=== PATIENT | male | born 1935 | race Caucasian/White ===

== ENCOUNTER 2017-04-15 06:17 | Emergency (ER) | payer MEDICARE, BC ==
--- NOTE | 2017-04-15 06:46 | EDM.PDOC ---
<Mike Bergman - Last Filed: 04/15/17 06:44> ED HPI GENERAL MEDICAL PROBLEM - General Chief Complaint: Chest Pain Stated Complaint: CHEST PAIN Time Seen by Provider: 04/15/17 06:43 Source of Information: Reports: Patient History Limitations: Reports: No Limitations - History of Present Illness INITIAL COMMENTS - FREE TEXT/NARRATIVE: This patient says that he's had chest pain for about the last 2 hours or so. He describes it as substernal or left pectoral area. He's had this before. There is no history of heart disease however. He gets a lot of intestinal gas and had some last night so took some gas pills before going to bed. He said that really didn't help much so he took some more during the night. He thinks the chest pain he's having this morning that was different from the gas he thinks this might actually be his heart. At the time of my exam his pain has completely resolved however. He denied any nausea sweats or shortness of breath. Chest Pain Score (Numeric/FACES): 7 - Related Data Allergies Allergy/AdvReac Type Severity Reaction Status Date / Time allopurinol Allergy Cannot Verified 03/15/14 18:17 Remember Penicillins Allergy Rash Verified 01/10/14 14:54 Sulfa (Sulfonamide Allergy Hives Verified 01/10/14 14:53 Antibiotics) Home Meds: Home Meds Ascorbic Acid [Vitamin C] 500 mg PO DAILY 01/10/14 [History] Cholecalciferol (Vitamin D3) [Vitamin D] 1,000 unit PO DAILY 01/10/14 [History] Pravastatin [Pravachol] 2 tab PO BEDTIME 01/10/14 [History] [place]-3 Fatty Acids 02/14/14 [History] Insulin Glarg,Human.Rec.Analog [Lantus Solostar] 10 units SUBCNJ BID 04/15/17 [ History] Terazosin HCl [Terazosin] 2 mg PO ASDIRECTED 04/15/17 [History] Past Medical History Cardiovascular History: Reports: High Cholesterol Other Musculoskeletal History: carpal tunnel Endocrine/Metabolic History: Reports: Diabetes, Type II - Infectious Disease History Infectious Disease History: Reports: Chicken Pox, Measles, Mumps, Shingles - Past Surgical History GI Surgical History: Reports: Hernia Repair/Other Other Musculoskeletal Surgeries/Procedures:: right thumb amputation. Social & Family History - Tobacco Use Smoking Status *Q: Never Smoker - Caffeine Use Caffeine Use: Reports: Coffee - Alcohol Use Days Per Week of Alcohol Use: 0 - Recreational Drug Use Recreational Drug Use: No ED ROS GENERAL - Review of Systems Review Of Systems: See Below Constitutional: Reports: No Symptoms HEENT: Reports: No Symptoms Respiratory: Reports: No Symptoms Cardiovascular: Reports: Chest Pain Endocrine: Reports: No Symptoms GI/Abdominal: Reports: No Symptoms : Reports: No Symptoms ED EXAM, GENERAL - Physical Exam Exam: See Below Exam Limited By: No Limitations General Appearance: Alert, WD/WN, No Apparent Distress Eye Exam: Bilateral Eye: Normal Inspection Throat/Mouth: Normal Inspection Respiratory/Chest: Lungs Clear, Normal Breath Sounds Cardiovascular: Normal Peripheral Pulses, Regular Rate, Rhythm, No Murmur Peripheral Pulses: 2+: Radial (L), Radial (R), Posterior Tibial (L), Posterior Tibial (R) GI/Abdominal: Normal Bowel Sounds, Soft, Non-Tender Extremities: Normal Inspection, No Pedal Edema Neurological: Alert, Oriented Psychiatric: Normal Affect Skin Exam: Warm, Dry Course - Vital Signs Last Recorded V/S: Last Vital Signs Temp 35.6 C 04/15/17 06:25 Pulse 55 L 04/15/17 06:25 Resp 16 04/15/17 06:25 BP 162/96 H 04/15/17 06:25 Pulse Ox 97 04/15/17 06:25 - Orders/Labs/Meds Orders: Active Orders 24 hr Category Date Time Status EKG Documentation Completion [RC] ASDIRECTED Care 04/15/17 06:47 Active URIC ACID [CHEM] Stat Lab 04/15/17 07:45 Ordered EKG 12 Lead [EK] Urgent Ther 04/15/17 06:47 Ordered Labs: Laboratory Tests 04/15/17 04/15/17 Range/Units 06:57 06:57 WBC 7.4 (4.5-11.0) K/uL RBC 4.44 (4.30-5.90) M/uL Hgb 13.2 (12.0-15.0) g/dL Hct 39.4 L (40.0-54.0) % MCV 89 (80-98) fL MCH 30 (27-31) pg MCHC 34 (32-36) % Plt Count 158 (150-400) K/uL Neut % (Auto) 77 H (36-66) % Lymph % (Auto) 12 L (24-44) % [place] % (Auto) 10 H (2-6) % Eos % (Auto) 2 (2-4) % Baso % (Auto) 0 (0-1) % Sodium 138 L (140-148) mmol/L Potassium 4.3 (3.6-5.2) mmol/L Chloride 103 (100-108) mmol/L Carbon Dioxide 24 (21-32) mmol/L Anion Gap 15.3 H (5.0-14.0) mmol/L BUN 31 H (7-18) mg/dL Creatinine 1.6 H (0.8-1.3) mg/dL Est Cr Clr Drug Dosing 30.83 mL/min Estimated GFR (MDRD) 42 L (>60) Glucose 123 H (74-106) mg/dL Calcium 8.8 (8.5-10.1) mg/dL Total Bilirubin 0.4 (0.2-1.0) mg/dL AST 23 (15-37) U/L ALT 26 (12-78) U/L Alkaline Phosphatase 74 (46-116) U/L Troponin I < 0.017 (0.000-0.056) ng/mL Total Protein 6.8 (6.4-8.2) g/dL Albumin 3.6 (3.4-5.0) g/dL Globulin 3.2 (2.3-3.5) g/dL Albumin/Globulin Ratio 1.1 L (1.2-2.2) Meds: Medications Discontinued Medications Generic Name Dose Route Start Last Admin Trade Name Henryq PRN Reason Stop Dose Admin Hydrocodone Bitart/Acetaminophen 1 tab 04/15/17 07:17 04/15/17 07:33 Brave 325-5 Mg PO 04/15/17 07:18 1 tab ONETIME ONE Administration Naproxen 500 mg 04/15/17 07:15 04/15/17 07:34 Naprosyn PO 04/15/17 07:16 500 mg Q12H ONE Administration Naproxen Confirm 04/15/17 07:36 Naprosyn Administered 04/15/17 07:37 Dose 250 mg .ROUTE .STK-MED ONE Departure - Departure Disposition: Home, Self-Care 01 Clinical Impression: Abdominal gas pain, Arthritis of foot, left, Atypical chest pain Forms: ED Department Discharge Care Plan Goals: rtc if chest pain occurs with exercise, soak left foot twice daily in warm water, cont medication Dr Sethi perscribed to prevent the uric acid to rise , avoid the use of advil and alieve, ibuprofen because of the kidney funtion. predisone 10 mg daily for 6 days to settle the pain in the toe down. Pt did not wish to have a cardiac stress test. - My Orders Last 24 Hours: My Active Orders 04/15/17 07:45 URIC ACID [CHEM] Stat - Assessment/Plan Last 24 Hours: My Active Orders 04/15/17 07:45 URIC ACID [CHEM] Stat <Tania Webster - Last Filed: 04/15/17 08:14> Course - Re-Assessments/Exams Free Text/Narrative Re-Assessment/Exam: 04/15/17 07:53 pt hd normal cardiac enzymes and his ekg looked good. He Has not been having episodes of chest pain. He is very active doing alot of physical work. he does not get chest pain with that. He has not been sob. he has been pain free since he arrived at the hosp. He did do alot of belching and then the pain went away. He is having alot of pain in the left great toe. A uric acid was ordered. he was recently placed on uloric whic prevents attacks. We did talk about getting a non exercise cardiac stress test. He did not want to do that unless he has further pain. He feels as active as he is that he is not having any heart problems. he was advised if he starts having pain with exercise he needs to have that. 04/15/17 07:56 04/15/17 07:59 04/15/17 08:01 Pt had a uric acid at the clinic which was not marked ly elevated. Departure - Departure Time of Disposition: 08:02 Condition: Fair
[2017-04-15] MEDS ORDERED: Naproxen 250 MG Tab PO ONE (07:15)
[2017-04-15] MEDS ORDERED: Acetaminophen/HYDROcodone 325-5 MG Tab PO ONE (07:17)
[2017-04-15] MEDS ORDERED: Naproxen 250 MG Tab ONE (07:36)
[2017-04-15 08:48] VITALS: BP 173/95
== END 2017-04-15 08:45 | disposition home or self-care (01) ==
LOC: JP.ED 06:17
DX: R07.89 Other chest pain (principal); M19.072 Primary osteoarthritis, left ankle and foot; R14.1 Gas pain; E78.00 Pure hypercholesterolemia, unspecified; E11.9 Type 2 diabetes mellitus without complications; Z89.011 Acquired absence of right thumb; Z88.0 Allergy status to penicillin; Z88.2 Allergy status to sulfonamides; Z79.899 Other long term (current) drug therapy; Z79.4 Long term (current) use of insulin
CPT/HCPCS: 36415; 80053; 84484; 84550; 85025; 93005; 99285; A9270; 93010; 99284

== ENCOUNTER 2018-02-04 06:50 | Emergency (ER) | payer MEDICARE, BC ==
[2018-02-04 07:14] VITALS: BP 176/93
[2018-02-04] MEDS ORDERED: HYDROmorphone 0.5 MG/0.5 ML Syringe IVPUSH ONE (07:50)
[2018-02-04] MEDS ORDERED: Lactated Ringers 1,000 ML IV SCH (08:00)
--- NOTE | 2018-02-04 08:00 | EDM.PDOC ---
ED HPI GENERAL MEDICAL PROBLEM - General Chief Complaint: Abdominal Pain Stated Complaint: STOMACHACHE Time Seen by Provider: 02/04/18 07:40 Source of Information: Reports: Patient, Old Records, RN History Limitations: Reports: No Limitations - History of Present Illness INITIAL COMMENTS - FREE TEXT/NARRATIVE: 82 yo male here with diffuse abdominal pain for the past 2 days. He has no fever or nausea. No change in stooling. Eating makes the pain which is now 8/10 slightly worse. Pushing on the abdomen does not change his sx's. He has not eaten yet today. He is urinating a little more often since the pain began. Stooling or voiding does not give him any relief. He is a non-smoker. He has not had any respiratory sx's. He has never had anything like this before. He has never had any abdominal surgeries. He is not aware of having any diverticular dz or inflammatory bowel dz. Sx's began gradually on Monday morning , he cannot tell me over what duration of time the pain increased, but it has been steady for most of the past couple of days. He has not tried any self tx. Also mentions that his sciatica has recently flared that he has been dealing with for the past 6 mos or so. Follows with his primary Dr. Sethi for this. Onset: Gradual Onset Date: 02/02/18 Duration: Day(s): (2), Constant Location: Reports: Abdomen Quality: Reports: Ache Severity: Moderate Improves with: Reports: None Worsens with: Reports: Eating (makes it slightly worse.) Context: Reports: Other (unknown) Associated Symptoms: Reports: No Other Symptoms. Denies: Chest Pain, Cough, Diaphoresis, Fever/Chills, Nausea/Vomiting, Shortness of Breath - Related Data Allergies Allergy/AdvReac Type Severity Reaction Status Date / Time allopurinol Allergy Cannot Verified 02/04/18 07:05 Remember Penicillins Allergy Rash Verified 02/04/18 07:05 Sulfa (Sulfonamide Allergy Hives Verified 02/04/18 07:05 Antibiotics) Home Meds: Home Meds Ascorbic Acid [Vitamin C] 500 mg PO DAILY 01/10/14 [History] Cholecalciferol (Vitamin D3) [Vitamin D] 1,000 unit PO DAILY 01/10/14 [History] Pravastatin [Pravachol] 2 tab PO BEDTIME 01/10/14 [History] [place]-3 Fatty Acids 02/14/14 [History] Terazosin HCl [Terazosin] 2 mg PO ASDIRECTED 04/15/17 [History] Insulin Glargine,Hum.Rec.Anlog [Basaglar Rodríguezpen U-100] 02/04/18 [History] Past Medical History Cardiovascular History: Reports: High Cholesterol Other Musculoskeletal History: carpal tunnel Endocrine/Metabolic History: Reports: Diabetes, Type II - Infectious Disease History Infectious Disease History: Reports: Chicken Pox, Measles, Mumps, Shingles - Past Surgical History GI Surgical History: Reports: Hernia Repair/Other Other Musculoskeletal Surgeries/Procedures:: right thumb amputation. Social & Family History - Tobacco Use Smoking Status *Q: Never Smoker - Caffeine Use Caffeine Use: Reports: Coffee - Alcohol Use Days Per Week of Alcohol Use: 0 - Recreational Drug Use Recreational Drug Use: No ED ROS GENERAL - Review of Systems Review Of Systems: See Below Constitutional: Reports: Malaise, Decreased Appetite HEENT: Reports: No Symptoms Respiratory: Reports: No Symptoms Cardiovascular: Reports: No Symptoms Endocrine: Reports: No Symptoms GI/Abdominal: Reports: Abdominal Pain, Anorexia, Decreased Appetite. Denies: Black Stool, Bloody Stool, Constipation, Diarrhea, Difficulty Swallowing, Distension, Hematemesis, Hematochezia, Melena, Nausea, Stool Incontinence, Vomiting : Reports: Frequency. Denies: Discharge, Dysuria, Flank Pain, Hematuria, Incontinence, Pain, Urgency, Urinary Retention Musculoskeletal: Reports: No Symptoms Skin: Reports: No Symptoms Neurological: Reports: No Symptoms Psychiatric: Reports: No Symptoms ED EXAM, GI/ABD - Physical Exam Exam: See Below Exam Limited By: No Limitations General Appearance: Alert, WD/WN, No Apparent Distress Eyes: Bilateral: Normal Appearance Ears: Normal External Exam, Normal Canal, Hearing Grossly Normal, Normal TMs Nose: Normal Inspection, Normal Mucosa, No Blood Throat/Mouth: Normal Inspection, Normal Lips, Normal Oropharynx, Normal Voice, No Airway Compromise Head: Atraumatic, Normocephalic Neck: Normal Inspection, Supple, Non-Tender Respiratory/Chest: No Respiratory Distress, Lungs Clear, Normal Breath Sounds, No Accessory Muscle Use Cardiovascular: Regular Rate, Rhythm, No Edema GI/Abdominal Exam: Soft, Non-Tender (pressing on the abdomen does not change his perception of pain.), No Distention, No Mass, Abnormal Bowel Sounds ( slightly decreased). No: Distended, Guarding, Rigid, Rebound, Tender, Hernia, Mass, Hepatomegaly, Splenomegaly (Male) Exam: No Hernia. No: Hernia, Inguinal Lymphadenopathy, Suprapubic Fullness Back Exam: Normal Inspection. No: CVA Tenderness (R), CVA Tenderness (L) Extremities: Normal Inspection Neurological: Alert, Oriented, CN II-XII Intact, Normal Cognition, No Motor/ Sensory Deficits Psychiatric: Normal Affect, Normal Mood Skin Exam: Warm, Dry, Intact, Normal Color, No Rash Lymphatic: No Adenopathy Course - Vital Signs Text/Narrative:: post-void bladder scan ~[address] abd/pelvis with contrast-moderate stool, diverticulosis, enlarged prostate Pain a lot better after 0.5 mg Dilauidid IV Last Recorded V/S: Last Vital Signs Temp 35.9 C 02/04/18 07:13 Pulse 61 02/04/18 07:13 Resp 14 02/04/18 07:13 BP 176/93 H 02/04/18 07:13 Pulse Ox 98 02/04/18 07:13 - Orders/Labs/Meds Orders: Active Orders 24 hr Category Date Time Status Abdomen Pelvis w Cont [CT] Stat Exams 02/04/18 07:54 Taken UA W/MICROSCOPIC [URIN] Stat Lab 02/04/18 09:52 Ordered Lactated Ringers [Ringers, Lactated] 1,000 ml Med 02/04/18 08:00 Active IV ASDIRECTED Sodium Chloride 0.9% [Saline Flush] Med 02/04/18 08:23 Active 10 ml FLUSH ONETIME PRN Medication Orders Lactated Ringer's (Ringers, Lactated) 1,000 mls @ 500 mls/hr IV ASDIRECTED WILMER Last Admin: 02/04/18 08:10 Dose: 500 mls/hr Sodium Chloride (Saline Flush) 10 ml FLUSH ONETIME PRN PRN Reason: PER RADIOLOGY PROTOCOL Last Admin: 02/04/18 09:27 Dose: 10 ml Labs: Laboratory Tests 02/04/18 02/04/18 02/04/18 Range/Units 08:01 08:01 08:01 WBC 11.7 H (4.5-11.0) K/uL RBC 5.12 (4.30-5.90) M/uL Hgb 15.0 (12.0-15.0) g/dL Hct 44.1 (40.0-54.0) % MCV 86 (80-98) fL MCH 29 (27-31) pg MCHC 34 (32-36) % Plt Count 170 (150-400) K/uL Sodium 136 L (140-148) mmol/L Potassium 4.3 (3.6-5.2) mmol/L Chloride 103 (100-108) mmol/L Carbon Dioxide 21 (21-32) mmol/L Anion Gap 16.3 H (5.0-14.0) mmol/L BUN 23 H (7-18) mg/dL Creatinine 1.6 H (0.8-1.3) mg/dL Est Cr Clr Drug Dosing 30.32 mL/min Estimated GFR (MDRD) 42 L (>60) Glucose 136 H (74-106) mg/dL Lactic Acid (0.4-2.0) mmol/L Calcium 9.2 (8.5-10.1) mg/dL Total Bilirubin 0.5 (0.2-1.0) mg/dL AST 17 (15-37) U/L ALT 25 (12-78) U/L Alkaline Phosphatase 68 (46-116) U/L Troponin I 0.021 (0.000-0.056) ng/mL C-Reactive Protein 0.30 (0.0-0.3) mg/dL Total Protein 6.8 (6.4-8.2) g/dL Albumin 3.8 (3.4-5.0) g/dL Globulin 3.0 (2.3-3.5) g/dL Albumin/Globulin Ratio 1.3 (1.2-2.2) Lipase 219 (73-393) U/L Urine Color Urine Appearance Urine pH (4.5-8.0) Ur Specific [place] (1.008-1.030) Urine Protein (NEGATIVE) mg/dL Urine Glucose (UA) (NEGATIVE) mg/dL Urine Ketones (NEGATIVE) mg/dL Urine Occult Blood (NEGATIVE) Urine Nitrite (NEGAITVE) Urine Bilirubin (NEGATIVE) Urine Urobilinogen (NORMAL) mg/dL Ur Leukocyte Esterase (NEGATIVE) Urine RBC (0-5) Urine WBC (0-5) Ur Epithelial Cells Amorphous Sediment Urine Bacteria Urine Mucus 02/04/18 02/04/18 Range/Units 08:01 09:52 WBC (4.5-11.0) K/uL RBC (4.30-5.90) M/uL Hgb (12.0-15.0) g/dL Hct (40.0-54.0) % MCV (80-98) fL MCH (27-31) pg MCHC (32-36) % Plt Count (150-400) K/uL Sodium (140-148) mmol/L Potassium (3.6-5.2) mmol/L Chloride (100-108) mmol/L Carbon Dioxide (21-32) mmol/L Anion Gap (5.0-14.0) mmol/L BUN (7-18) mg/dL Creatinine (0.8-1.3) mg/dL Est Cr Clr Drug Dosing mL/min Estimated GFR (MDRD) (>60) Glucose (74-106) mg/dL Lactic Acid 1.1 (0.4-2.0) mmol/L Calcium (8.5-10.1) mg/dL Total Bilirubin (0.2-1.0) mg/dL AST (15-37) U/L ALT (12-78) U/L Alkaline Phosphatase (46-116) U/L Troponin I (0.000-0.056) ng/mL C-Reactive Protein (0.0-0.3) mg/dL Total Protein (6.4-8.2) g/dL Albumin (3.4-5.0) g/dL Globulin (2.3-3.5) g/dL Albumin/Globulin Ratio (1.2-2.2) Lipase (73-393) U/L Urine Color Yellow Urine Appearance Slightly cloudy Urine pH 6.0 (4.5-8.0) Ur Specific [place] 1.010 (1.008-1.030) Urine Protein Trace (NEGATIVE) mg/dL Urine Glucose (UA) Normal (NEGATIVE) mg/dL Urine Ketones Negative (NEGATIVE) mg/dL Urine Occult Blood Moderate (NEGATIVE) Urine Nitrite Negative (NEGAITVE) Urine Bilirubin Negative (NEGATIVE) Urine Urobilinogen Normal (NORMAL) mg/dL Ur Leukocyte Esterase Negative (NEGATIVE) Urine RBC 5-10 H (0-5) Urine WBC Not seen (0-5) Ur Epithelial Cells Not seen Amorphous Sediment Few Urine Bacteria Not seen Urine Mucus Few Meds: Medications Generic Name Dose Route Start Last Admin Trade Name Freq PRN Reason Stop Dose Admin Lactated Ringer's 1,000 mls @ 500 mls/hr 02/04/18 08:00 02/04/18 08:10 Ringers, Lactated IV 500 mls/hr ASDIRECTED WILMER Administration Sodium Chloride 10 ml 02/04/18 08:23 02/04/18 09:27 Saline Flush FLUSH 10 ml ONETIME PRN Administration PER RADIOLOGY PROTOCOL Discontinued Medications Generic Name Dose Route Start Last Admin Trade Name Freq PRN Reason Stop Dose Admin Hydromorphone HCl 0.5 mg 02/04/18 07:50 02/04/18 08:07 Dilaudid IVPUSH 02/04/18 07:51 0.5 mg ONETIME ONE Administration Sodium Chloride 72 mls @ 3 mls/sec 02/04/18 08:23 02/04/18 09:27 Normal Saline IV 02/04/18 08:24 3 mls/sec ONETIME ONE Administration Iopamidol 100 ml 02/04/18 08:23 02/04/18 09:27 Isovue-300 (61%) IV 100 ml . DIRECTED PRN Administration RADIOLOGY EXAM Departure - Departure Time of Disposition: 10:50 Disposition: Home, Self-Care 01 Condition: Fair Clinical Impression: Abdominal pain Qualifiers: Abdominal location: generalized Qualified Code(s): R10.84 - Generalized abdominal pain - Discharge Information Referrals: Viraj Sethi MD [Primary Care Provider] - Forms: ED Department Discharge Additional Instructions: Increase your terazocin to 4 mg at bedtime for urinary retention. - My Orders Last 24 Hours: My Active Orders 02/04/18 07:54 Abdomen Pelvis w Cont [CT] Stat 02/04/18 08:00 Lactated Ringers [Ringers, Lactated] 1,000 ml IV ASDIRECTED 02/04/18 08:23 Sodium Chloride 0.9% [Saline Flush] 10 ml FLUSH ONETIME PRN 02/04/18 09:52 UA W/MICROSCOPIC [URIN] Stat - Assessment/Plan Last 24 Hours: My Active Orders 02/04/18 07:54 Abdomen Pelvis w Cont [CT] Stat 02/04/18 08:00 Lactated Ringers [Ringers, Lactated] 1,000 ml IV ASDIRECTED 02/04/18 08:23 Sodium Chloride 0.9% [Saline Flush] 10 ml FLUSH ONETIME PRN 02/04/18 09:52 UA W/MICROSCOPIC [URIN] Stat
[2018-02-04] MEDS ORDERED: Sodium Chloride 0.9% 10 ML Syringe FLUSH PRN (08:23)
[2018-02-04] MEDS ORDERED: Iopamidol 612 MG/ML 100 ML Bottle IV PRN (08:23)
== END 2018-02-04 11:13 | disposition home or self-care (01) ==
LOC: JP.ED 06:50
DX: R10.84 Generalized abdominal pain (principal); E11.9 Type 2 diabetes mellitus without complications; E78.00 Pure hypercholesterolemia, unspecified; Z79.899 Other long term (current) drug therapy; Z88.0 Allergy status to penicillin; Z88.2 Allergy status to sulfonamides; Z79.4 Long term (current) use of insulin
CPT/HCPCS: 36415; 51798; 74177; 80053; 81001; 83605; 83690; 84484; 85027; 86140; 96361; 96374; 99284; J1170; J7030; J7050; J7120; Q9967

== ENCOUNTER 2018-03-05 05:45 | Day surgery (SDC) | payer MEDICARE, BC ==
[2018-03-05] MEDS ORDERED: Dextrose 5%-Lactated Ringers 1,000 ML IV SCH (06:30)
[2018-03-05] MEDS ORDERED: fentaNYL 100 MCG/2 ML SDV ONE (07:09)
[2018-03-05] MEDS ORDERED: Propofol 200 MG/20 ML SDV ONE ×2 (07:09→07:45)
[2018-03-05] MEDS ORDERED: Glycopyrrolate 0.2 MG/ML 2 ML SDV IVPUSH ONE (07:15)
[2018-03-05] MEDS ORDERED: Pantoprazole 40 MG Vial IVPUSH ONE (08:10)
[2018-03-05 09:26] VITALS: BP 151/87
--- NOTE | 2018-03-07 10:47 | OR ---
DATE OF PROCEDURE: 03/05/2018 PREOPERATIVE DIAGNOSIS: Recent episode of abdominal pain with CT scan showing thickening of the gastric fundus. POSTOPERATIVE DIAGNOSIS: Upper GI endoscopy showin. Submucosal mass involving gastric fundus. 2. Antral gastritis with focal pre-pyloric ulcer. OPERATIVE PROCEDURE: Esophagogastroduodenoscopy with: 1. Biopsies of antrum for CLOtest. 2. Biopsies of pre-pyloric ulcer for histologic evaluation. 3. Snare excision of mucosa overlying the submucosal gastric fundal mass (30222). 4. Biopsies of submucosal mass involving gastric fundus (45257). ANESTHESIA: IV sedation. INDICATION FOR PROCEDURE: An 82-year-old presenting with some identified thickening of the gastric fundus on CT scan. This was prompted after some episodes of abdominal pain and the patient was seen in the emergency room. Plan is to proceed with upper GI endoscopy with biopsies as indicated. Potential risks including bleeding and perforation were discussed, and the patient wishes to proceed. DETAILS OF PROCEDURE: The patient was taken to the operating room and placed in the left lateral decubitus position. IV sedation was administered, after which the upper GI endoscope was passed orally through the length of the esophagus and stomach with retroflexion view of the fundus, and thereafter through the pyloric channel and into the proximal duodenum. Findings included normal hypopharynx, larynx, and upper esophageal sphincter. The esophageal body and EG junction were likewise unremarkable. As one passed in the stomach, retroflexion revealed a fairly large mass. This was roughly 3 to 4 cm inferior to the esophagogastric junction. This could be submucosal mass. Apart from that within the gastric antrum, there was diffuse gastritis and a focal prepyloric ulcer. This was fairly small in terms of diameter, but appeared to be fairly deep. The rest of the pyloric channel and duodenum to the junction of third and fourth portions were unremarkable. At this point, biopsies were obtained from the antrum and sent for CLOtest for H. pylori. Multiple biopsies were obtained from the gastric ulcer and sent for histologic evaluation. Attention was then taken to the submucosal mass in the gastric antrum. Initially the snare was placed around its base and as this was tightened and cautery applied, it basically unroofed the surface of the mass removing the mucosa overlying it. This was sent for histologic evaluation. This then allowed what appeared to be a nice platform for biopsy of the white hard submucosal mass. Multiple biopsies of this were obtained. Minimal bleeding from the biopsy site was seen and the procedure then concluded. The patient was taken to the recovery room in satisfactory condition. This submucosal mass most likely will need to be resected, but the extent of resection would depend on histologic findings based on today's biopsies. We will see the patient back this coming to discuss treatment option. The patient will also be started on Protonix 40 mg IV in the recovery room and then 40 mg daily for treatment of the gastritis, prepyloric ulcer. Eliecer Ludwig MD /[id number]
== END 2018-03-05 09:55 | disposition home or self-care (01) ==
LOC: JP.SDS 05:45
PROVIDERS: ATTEND Surgery
DX: K29.50 Unspecified chronic gastritis without bleeding (principal); B96.81 Helicobacter pylori [H. pylori] as the cause of diseases classified elsewhere; K31.89 Other diseases of stomach and duodenum; K25.9 Gastric ulcer, unspecified as acute or chronic, without hemorrhage or perforation; Z88.0 Allergy status to penicillin; Z88.2 Allergy status to sulfonamides; Z88.8 Allergy status to other drugs, medicaments and biological substances
CPT/HCPCS: 43239; 43251; 87081; 88305; 88341; 88342; 88360; C9113; J2704; J3010; J7042; J3490

== ENCOUNTER 2018-03-13 06:04 | Inpatient (IN) | payer MEDICARE, BC ==
[~2018-03-13 06:04] MED LIST: Acetaminophen 500 MG Tab PO ONE; Celecoxib 200 MG Cap PO ONE; Gabapentin 300 MG Cap PO ONE; Scopolamine 1.5 MG Transdermal Patch TOP SCH
[2018-03-13] MEDS ORDERED: Dextrose 5%-Lactated Ringers 1,000 ML IV SCH (06:30)
[2018-03-13] MEDS ORDERED: Propofol 200 MG/20 ML SDV ONE (07:03)
[2018-03-13] MEDS ORDERED: Glycopyrrolate 0.2 MG/ML 5 ML MDV ONE (07:03)
[2018-03-13] MEDS ORDERED: Ondansetron 4 MG/2 ML SDV ONE (07:03)
[2018-03-13] MEDS ORDERED: Dexamethasone 4 MG/ML SDV ONE (07:03)
[2018-03-13] MEDS ORDERED: Rocuronium 50 MG/5 ML Vial ONE (07:03)
[2018-03-13] MEDS ORDERED: Succinylcholine 200 MG/10 ML MDV ONE (07:03)
[2018-03-13] MEDS ORDERED: Neostigmine Methylsulfate 1 MG/ML 5 ML Syringe ONE (07:03)
[2018-03-13] MEDS ORDERED: fentaNYL 250 MCG/5 ML SDV ONE (07:03)
[2018-03-13] MEDS ORDERED: cefOXitin 2 GM in Sodium Chloride 0.9% 50 ML IV ONE (07:30)
[2018-03-13] MEDS ORDERED: HYDROmorphone/Normal Saline 15 MG/30 ML PCA IV PRN (07:32)
[2018-03-13] MEDS ORDERED: Naloxone 0.4 MG/ML SDV IV PRN (07:39)
[2018-03-13] MEDS ORDERED: Ketamine 500 MG/5 ML MDV IV SCH (07:45)
[2018-03-13] MEDS ORDERED: Ropivacaine 36 ML, Dexamethasone 8 MG, EPINEPHrine 0.4 MG, Sodium Chloride 0.9% 41.6 ML NERVRT SCH ×4 (07:45)
[2018-03-13] MEDS ORDERED: Meropenem 500 MG SDV ONE (08:34)
[2018-03-13] MEDS ORDERED: ePHEDrine 50 MG/ML SDV ONE (09:05)
[2018-03-13] MEDS ORDERED: Insulin Aspart 100 Units/ML 3 ML Pen SUBCUT SCH (11:00)
[2018-03-13] MEDS: Dextrose 5%-Lactated Ringers 1,000 ML IV SCH ×2 (11:45→22:53)
[2018-03-13] MEDS ORDERED: Glucagon,Human Recombinant 1 MG Vial IM PRN (12:00)
[2018-03-13] MEDS ORDERED: Metoclopramide 10 MG/2 ML SDV IVPUSH PRN (12:00)
[2018-03-13] MEDS ORDERED: diphenhydrAMINE 50 MG/ML SDV IVPUSH PRN (12:00)
[2018-03-13] MEDS ORDERED: Labetalol 20 MG/4 ML Syringe IVPUSH PRN (12:00)
[2018-03-13] MEDS ORDERED: hydrOXYzine HCl 100 MG/2 ML SDV IM PRN (12:00)
[2018-03-13] MEDS ORDERED: 50% Dextrose in Water 50 ML Syringe IVPUSH PRN (12:00)
[2018-03-13] MEDS ORDERED: Ondansetron 4 MG/2 ML SDV IVPUSH PRN (12:00)
[2018-03-13] MEDS: Gabapentin 250 MG/5 ML Solution ML 470 ML Bottle PO SCH ×2 (15:12→20:15)
[2018-03-13] MEDS: Pantoprazole 40 MG Vial IVPUSH SCH (15:13)
[2018-03-13] MEDS: Acetaminophen Soln 650 MG/20.3 ML UD Cup PO SCH ×2 (15:14→20:15)
[2018-03-13] MEDS: cefOXitin 2 GM in Sodium Chloride 0.9% 50 ML IV SCH ×2 (15:14→20:15)
[2018-03-13] MEDS: MVI, Adult with Vitamin K 10 ML, Thiamine 100 MG, Chromium/Copper/Mang/Selen/Zn 1 ML in... IV SCH ×4 (16:45)
[2018-03-13] MEDS: Insulin Aspart 100 Units/ML 3 ML Pen SUBCUT PRN (17:03)
[2018-03-13] MEDS: Heparin Sodium 5,000 Units/ML Vial SUBCUT SCH (20:14)
[2018-03-14] MEDS: Insulin Aspart 100 Units/ML 3 ML Pen SUBCUT PRN (00:22)
[2018-03-14] MEDS: cefOXitin 2 GM in Sodium Chloride 0.9% 50 ML IV SCH ×2 (01:15→09:20)
[2018-03-14] MEDS: Acetaminophen Soln 650 MG/20.3 ML UD Cup PO SCH ×4 (02:22→20:21)
[2018-03-14] MEDS ORDERED: Iohexol 647 MG/ML 50 ML SDV PO STA (03:29)
[2018-03-14] MEDS: Dextrose 5%-Lactated Ringers 1,000 ML IV SCH ×2 (04:38→23:25)
--- NOTE | 2018-03-14 09:03 | PN ---
DATE OF SERVICE: 03/14/2018 SUBJECTIVE: Mateo is postop day 1. His vital signs have been stable. Upper GI x-ray looked good today. Pain is controlled. He has been up in the chair. Blood sugar last checked was 123. REVIEW OF SYSTEMS: Remainder of review of systems is negative for any pertinent positives and negatives. OBJECTIVE: GENERAL: Mateo Laureano is a pleasant 82-year-old male. He is alert, orientated, lying in the bed with the head of the bed elevated. VITAL SIGNS: TPR, no temperature has been checked, pulse 54, respirations 18, and blood pressure is 115/65. HEENT: Negative. NECK: Supple. HEART: Regular rate and rhythm. LUNGS: Clear. ABDOMEN: Dressings are dry and intact. ERINN drain put out 145 mL of a light pink serosanguineous drainage and abdominal binder has been on it. EXTREMITIES: SCDs are on. There is no peripheral edema. Ace catheter output was 1715. ASSESSMENT: 1. EGD. 2. Exploratory laparotomy. Derik-en-Y esophagogastrectomy and small bowel resection for ulcerated submucosal mass adjacent to the esophageal junction, persistent gastritis, and duodenitis refractory to medical management. 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 Date of surgery 03/13/2018. PLAN: 1. Schedule and have consent signed for delayed primary closure. IV sedation in the a.m. 2. Decrease IV to 100 mL per hour. 3. Discontinue Ace. 4. Step-2 gastric bypass diet without cereal. 5. Continue RAG SHREDDER until after delayed primary closure. 6. Home medications: Terazosin HCl 2 mg p.o. at bedtime restarted. Good pulmonary toilet. We will evaluate p.r.n. or in the a.m. Damaris Larry PA-C /[id number]
[2018-03-14] MEDS: Gabapentin 250 MG/5 ML Solution ML 470 ML Bottle PO SCH ×3 (09:20→20:24)
[2018-03-14] MEDS: SCOPOLAMINE PATCH CHECK TOP SCH (09:21)
[2018-03-14] MEDS: Heparin Sodium 5,000 Units/ML Vial SUBCUT SCH ×2 (09:21→20:20)
[2018-03-14] MEDS: Celecoxib 200 MG Cap PO SCH (09:21)
--- NOTE | 2018-03-14 09:32 | CR ---
UGI wo KUB HISTORY: eval R -Y GBP FINDINGS: After administration of oral contrast, upright views were obtained. Post operative changes gastric bypass. Surgical drains in place. No evidence for leak. Contrast passes freely into proximal small bowel loops. IMPRESSION: No evidence for leak or obstruction.
[2018-03-14] MEDS: Pantoprazole 40 MG Vial IVPUSH SCH (16:16)
[2018-03-14] MEDS: MVI, Adult with Vitamin K 10 ML, Thiamine 100 MG, Chromium/Copper/Mang/Selen/Zn 1 ML in... IV SCH ×4 (16:16)
[2018-03-14] MEDS: Terazosin 1 MG Cap PO SCH (20:21)
[2018-03-15] MEDS ORDERED: Lidocaine 2% Jelly 10 ML Urojet MUCMEM ONE (00:58)
[2018-03-15] MEDS: Acetaminophen Soln 650 MG/20.3 ML UD Cup PO SCH ×4 (01:12→20:00)
[2018-03-15] MEDS ORDERED: Meropenem 500 MG SDV ONE (06:42)
[2018-03-15] MEDS ORDERED: Bupivacaine 0.5% 50 ML MDV ONE (06:42)
[2018-03-15] MEDS ORDERED: Lidocaine 1% with EPINEPHrine 1:100,000 50 ML MDV ONE (06:43)
[2018-03-15] MEDS ORDERED: Midazolam 1 MG/ML 2 ML SDV ONE (07:01)
[2018-03-15] MEDS ORDERED: Propofol 200 MG/20 ML SDV ONE (07:01)
[2018-03-15] MEDS ORDERED: fentaNYL 100 MCG/2 ML SDV ONE (07:01)
[2018-03-15] MEDS ORDERED: Ropivacaine 36 ML, Dexamethasone 8 MG, EPINEPHrine 0.4 MG, Sodium Chloride 0.9% 41.6 ML NERVRT SCH ×4 (08:00)
[2018-03-15] MEDS: SCOPOLAMINE PATCH CHECK TOP SCH (08:45)
[2018-03-15] MEDS: Celecoxib 200 MG Cap PO SCH (08:45)
[2018-03-15] MEDS: Heparin Sodium 5,000 Units/ML Vial SUBCUT SCH ×2 (08:45→20:01)
[2018-03-15] MEDS: Gabapentin 250 MG/5 ML Solution ML 470 ML Bottle PO SCH ×3 (08:48→20:03)
[2018-03-15] MEDS ORDERED: HYDROmorphone 2 MG Tab PO PRN (08:58)
--- NOTE | 2018-03-15 08:59 | PN ---
DATE OF SERVICE: 03/15/2018 SUBJECTIVE: Mateo is n.p.o. for delayed primary closure. He had his Ace catheter replaced with 800 mL of residual at 01:30. ERINN has put out 130 mL. REVIEW OF SYSTEMS: Remainder of review of systems negative for any pertinent positives and negatives. OBJECTIVE: GENERAL: Mateo is a pleasant 82-year-old male. He is alert and orientated, going down for delayed primary closure. VITAL SIGNS: TPR 97, 56, 13. Blood pressure 107/61. HEENT: Negative. NECK: Supple. HEART: Regular rate and rhythm. LUNGS: Clear. ABDOMEN: Dressings dry and intact. Abdominal binder is on. EXTREMITIES: Without peripheral edema. ASSESSMENT: 1. Esophagogastroduodenoscopy. 2. Exploratory laparotomy, Derik-en-Y esophagogastrectomy and small bowel resection for ulcerated submucosal mass adjacent to the esophageal junction, persistent gastritis and duodenitis, refractory to medical management, small bowel resection associated with occluded hyperplastic vessel. Date of surgery 03/13/2018. PLAN: Orders to be written after delayed primary closure. Damaris Larry PA-C /[id number]
[2018-03-15] MEDS ORDERED: Cyanocobalamin (Vitamin B12) 1,000 MCG/ML SDV IM ONE (09:00)
--- NOTE | 2018-03-15 09:04 | PN ---
DATE OF SERVICE: 03/15/2018 The patient has been clinically stable. Blood sugars remain good, and his diabetes has gone in remission. Oral intake is fairly good, and resume his step-2 diet for delayed primary closure. Today, he had urinary retention with 800 mL residual. Ace catheter has been placed. He has already had Hytrin, but we will add Flomax to the equation and try getting his bladder catheter out tomorrow. 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 Eliecer Ludwig MD /[id number]
[2018-03-15] MEDS: Tamsulosin 0.4 MG Cap.ER PO SCH ×2 (10:25→20:00)
[2018-03-15] MEDS: Dextrose 5%-Lactated Ringers 1,000 ML IV SCH ×2 (14:29→22:45)
[2018-03-15] MEDS: Pantoprazole 40 MG Vial IVPUSH SCH (15:27)
[2018-03-15] MEDS: MVI, Adult with Vitamin K 10 ML, Thiamine 100 MG, Chromium/Copper/Mang/Selen/Zn 1 ML in... IV SCH ×4 (16:20)
[2018-03-15] MEDS: Insulin Aspart 100 Units/ML 3 ML Pen SUBCUT PRN (18:07)
[2018-03-15] MEDS: Terazosin 1 MG Cap PO SCH (20:00)
[2018-03-16] MEDS: Acetaminophen Soln 650 MG/20.3 ML UD Cup PO SCH ×4 (02:22→20:18)
[2018-03-16] MEDS: Celecoxib 200 MG Cap PO SCH (07:29)
[2018-03-16] MEDS: Heparin Sodium 5,000 Units/ML Vial SUBCUT SCH ×2 (07:29→20:16)
--- NOTE | 2018-03-16 08:46 | PN ---
DATE OF SERVICE: 03/16/2018 SUBJECTIVE: Mateo had his Ace catheter removed at 0500 hours, this morning. Vital signs have been stable. Blood sugar was 147 and 155. He has been up ambulating. Has not had a bowel movement, but is passing flatus. Pain has been controlled. REVIEW OF SYSTEMS: Remainder of review of systems negative for any pertinent positives and negatives. OBJECTIVE: GENERAL: Mateo Laureano is a pleasant 82-year-old male. VITAL SIGNS: TPR is 97.9, 56, 16, and blood pressure 151/80. HEENT: Negative. NECK: Supple. HEART: Regular rate and rhythm. LUNGS: Clear. ABDOMEN: Dressings dry and intact. Abdominal binder is on. EXTREMITIES: Without peripheral edema. ASSESSMENT: 1. Delayed primary closure on 03/15/2018. 2. Esophagogastroduodenoscopy (EGD), exploratory laparotomy, Derik-en-Y esophagogastrectomy and small bowel resection for ulcerated submucosal mass adjacent to the esophageal junction, persistent gastritis and duodenitis refractory to medical management, small bowel resection associated with occluded hyperplastic vessel. Date of surgery, 03/13/2018. PLAN: 1. Milk of magnesia 30 mL now. 2. Dulcolax 2 tabs oral 1 hour after milk of magnesia. 3. Check CBC, CMP, magnesium, and phosphorus in a.m. 4. We will evaluate p.r.n. or in a.m. Damaris Larry PA-C /[id number]
[2018-03-16] MEDS ORDERED: Magnesium Hydroxide 400 MG/5 ML Susp 30 ML Cup PO ONE (09:00)
[2018-03-16] MEDS: Gabapentin 250 MG/5 ML Solution ML 470 ML Bottle PO SCH ×3 (09:11→20:21)
[2018-03-16] MEDS ORDERED: Bisacodyl 5 MG Tab PO ONE (10:00)
[2018-03-16] MEDS ORDERED: Azithromycin 500 MG in Sodium Chloride 0.9% 250 ML IV SCH (12:00)
[2018-03-16] MEDS ORDERED: Pantoprazole 40 MG Delayed-Release Granules 1 Packet PO SCH (14:00)
[2018-03-16] MEDS: Terazosin 1 MG Cap PO SCH (20:19)
[2018-03-16] MEDS: Tamsulosin 0.4 MG Cap.ER PO SCH (20:19)
[2018-03-16 23:22] VITALS: BP 152/78
[2018-03-17] MEDS: Acetaminophen Soln 650 MG/20.3 ML UD Cup PO SCH ×2 (02:00→07:13)
[2018-03-17] MEDS: Celecoxib 200 MG Cap PO SCH (07:13)
--- NOTE | 2018-03-17 09:05 | DISCH ---
ADMISSION DIAGNOSES: Gastric ulcer, diabetes mellitus, benign essential hypertension, hypercholesterolemia, hearing loss, wears bilateral hearing aids, benign prostatic hypertrophy, gouty arthritis, bilateral sciatica. DISCHARGE DIAGNOSES: 1. Esophagogastroduodenoscopy. 2. Exploratory laparotomy, Derik-en-Y esophagogastrectomy and small bowel resection for ulcerated submucosal mass adjacent to the esophageal junction, persistent gastritis and duodenitis refractory to medical management, small bowel resection associated with occluded hyperplastic vessel. Date of surgery, 03/13/2018. 3. Delayed primary closure, 03/15/2018. HISTORY: Mateo Laureano had persistent gastritis and duodenitis refractory to medical management. After preoperative evaluation and discussion of possible risks and possible complications, he wished to proceed with surgical procedure. HOSPITAL COURSE: Mateo had his surgery on 03/13/2018. On postop day #1, his upper GI was normal. His pain was controlled. Blood sugars were within normal limits. He was started on a step-2 gastric bypass diet without cereal. On postop day #2, he had a delayed primary closure. He did have some urinary retention. Ace catheter was put back in. On postop day #3, he was given some bowel stimulation. Blood sugars remained normal at 147 and 155. He was up ambulating. Pain was controlled. He did start having bowel movements later in the evening and on postop day 4, he was able to be discharged to home without any complications. Pain was controlled. Activity was good. He received dietary instructions. He was voiding without difficulty and activity was good. PHYSICAL EXAMINATION: GENERAL: Mateo Laureano is an 82-year-old male. VITAL SIGNS: Height is 5 feet 2.99 inches, weight is 155 pounds, TPR is 97.2, 51, 20, blood pressure 152/78. HEENT: Negative. NECK: Supple. HEART: Regular rate and rhythm. LUNGS: Clear. ABDOMEN: Occlusive Aquacel dressing was removed. Earl look good. Incision healing well. Abdomen is soft, normally tender. ERINN drain will be removed prior to discharge. Abdominal binder has been on. EXTREMITIES: Without peripheral edema. DISPOSITION: Discharged to home. CONDITION: Stable and improving. FOLLOWUP: Followup appointment with Damaris Larry PA-C on 03/28/2018 at 10:00 a.m. DISCHARGE MEDICATIONS: New prescriptions: 1. Tylenol 650 mg oral q.6 hours p.r.n. pain. 2. Dilaudid 2 mg 1 to 2 q.4 hours p.r.n. pain, #30. Home medications: He is to resume his home medications of Pravachol 80 mg at bedtime, terazosin 2 mg at bedtime, quinine sulfate 324 mg oral daily. Discontinued medications: To discontinue taking vitamin C, vitamin D3, Neurontin, insulin, multivitamin. DIET AFTER DISCHARGE: Bariatric diet step-2 without cereal until March 29, 2018. He is to drink 8-10 glasses of water a day. ACTIVITY: No lifting over 10 pounds for 6 weeks. Other activity: Walk inside your home about 6 times daily. Driving: Do not drive while on pain medication. May shower. Notify provider if any fever, increased pain, nausea, or vomiting. Keep site clean and dry. Wear abdominal binder for 6 weeks and then as tolerated. SPECIAL INSTRUCTIONS: 1. Use incentive spirometer 10 times every hour while awake for 1 week. 2. Check blood sugar when you first get up in the morning and bring results to clinic appointment.
[2018-03-17] MEDS: Gabapentin 250 MG/5 ML Solution ML 470 ML Bottle PO SCH (09:10)
--- NOTE | 2018-03-20 11:08 | OR ---
DATE OF PROCEDURE: 03/15/2018 PREOPERATIVE DIAGNOSIS: Open abdominal incision. POSTOPERATIVE DIAGNOSIS: Open abdominal incision. OPERATIVE PROCEDURE: Delayed primary closure of open abdominal incision. ANESTHESIA: IV sedation. INDICATION FOR PROCEDURE: An 82-year-old status post esophagogastrectomy and small-bowel resection earlier this week. At the time of the initial procedure, he was felt to be high risk for wound infection if a primary closure was undertaken. Given this, he is to undergo a delayed primary closure at this time. Potential risks including bleeding and infection were reviewed and the patient wishes to proceed. DETAILS OF PROCEDURE: The patient was taken to the operating room, placed in a supine position. After IV sedation was administered, bilateral subcostal transversus abdominis plane blocks were placed with continuous ultrasound. Following this, the dressing was taken down. The wound was inspected and found to be clean. This was then prepped and draped, anesthetized with 1% lidocaine mixed with Marcaine and irrigated with meropenem-containing saline solution. This was a midline incision from the xiphoid to the umbilicus, it was closed with 2 layers of 3-0 and 4-0 Vicryl stitch deep, and then mauri for the skin. Dressing was applied. The patient was taken to the recovery room in satisfactory condition. Eliecer Ludwig MD /[id number]
--- NOTE | 2018-03-23 11:47 | OR ---
DATE OF PROCEDURE: 03/13/2018 PREOPERATIVE DIAGNOSES: 1. Ulcerated submucosal mass adjacent to the esophagogastric junction. 2. Recently diagnosed gastric ulcer with positive H. pylori assay. POSTOPERATIVE DIAGNOSES: 1. Ulcerated submucosal mass adjacent to esophagogastric junction. 2. Persistent antral gastritis and duodenitis, refractory to medical management. 3. 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 OPERATIVE PROCEDURES: 1. Esophagogastroduodenoscopy, (03961). 2. Exploratory laparotomy with: a. Esophagogastrectomy with Derik-en-Y esophagojejunostomy, (46323). b. Small bowel resection, (36772). ANESTHESIA: General. WRAPPER SELECTOR: Damrais Larry PA-C. INDICATIONS FOR PROCEDURE: This is an 82-year-old presenting with recent upper abdominal discomfort. A CT scan was obtained as part of the workup, which showed a mass effect in the area of the stomach adjacent to the esophagogastric junction. Upper endoscopy revealed a large ulcerated submucosal mass present. 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 pylori. The patient has been started on Protonix and at this point is undergoing upper GI endoscopy initially. If the appearance of the antral and duodenal area has cleared quite a bit, we would probably leave those in place and proceed with a proximal esophagogastrectomy with a Derik-en-Y reconstruction. If those areas still appear to be problematic, in terms of ongoing inflammation despite the Protonix, he would probably be best served with a total gastrectomy as part of the esophagogastrectomy, so as to eliminate those issues, as the portion of the stomach would be bypassed anyway and we would not at that point have endoscopic access, and any treatment of the H. pylori also might be somewhat more difficult. Potential risks of the procedure were reviewed with the patient and daughter, as well as his at the time of the clinic, and they wished to proceed. DETAILS OF PROCEDURE: The patient was taken to the operating room. After general endotracheal anesthesia was induced, initially the upper GI endoscope was passed orally through the length of the esophagus and into the stomach with retroflexion view revealing persistence of the large ulcerated area involving submucosal mass adjacent to the esophagogastric junction. As one passed down toward into the antrum, this area was notable to still be quite markedly inflamed with mucosa being reddened, friable, and some erosions present. The ulcer has presently healed. So, I think we are not likely dealing with anything malignant; given the finding; however, we will likely proceed with the intention of total gastrectomy, including the distal esophagus, i.e., esophagogastrectomy with Derik-en-Y reconstruction. This should be helpful with regard to his type 2 diabetes mellitus as well. At this point, the Ace catheter was inserted and the abdomen, prepped and draped. Bilateral subcostal transversus abdominis plane blocks were placed using continuous ultrasound and standard solution bilaterally. Upper midline incision was made and carried down through the skin and subcutaneous tissue and fascia from the xiphoid to the umbilicus, and general exploration was undertaken. At this point, the mass nearby the esophagogastrojejunostomy was then easily palpated. This appeared to be almost full thickness from the external vantage point, i.e. came directly underneath the serosa, so it was fairly significant. There was no significant lymphadenopathy present, and the proximal duodenum was fairly soft and appeared to be a good location for the distal GI tract division. At this point, the Oneyda tube was placed orally per Anesthesia across the esophagogastric junction. This allowed division of the peritoneum along the distal esophagus, and after the Oneyda tube was then pulled back up and out, the distal esophagus roughly 5 cm proximal to the esophagogastric junction was divided with a BARRY black load. The omentum was then divided away from the greater curvature for its entire length and slightly onto the duodenum with a combination of vascular and mesenteric loads. This included visualized posterior gastric vessels. The left gastric vessels were then divided with mesenteric loads, and the rim attachments extending upward towards the divided esophagus and the lesser curvature side were then divided as well with BARRY staplers. This dissection than continued distally slightly below the pyloric sphincter, at which time the proximal duodenum was divided with a BARRY black load. This was a curved black load. The esophagogastrectomy specimen was then delivered from the field. Attention was taken to formation of the Derik limb. The small bowel was identified at the ligament of Treitz and then traced out 50 cm distal to that point. The small bowel was then traced out an additional 100 cm, where the [id number] enteroenterostomy was accomplished with internal firing of the Endo-BARRY 60 mm stapler. The common opening was then closed transversely with the same stapler, angles anastomosed, and mesenteric defect approximated with some 0 Ethibond stitch, along with 4 mL of fibrin sealant. The Derik limb then came up into the area of the divided esophagus without tension through a retrocolic tunnel that had been created in the midportion of the transverse mesocolon. One additional finding was that of a lymphocele involving the small bowel, roughly 40 cm distal to the point of small bowel anastomosis. This was associated with what appeared to be an occluded small-bowel lymphatic vessel. This segment of bowel was then resected, dividing proximally and distally with BARRY conner loads, and the underlying mesentery with mesenteric BARRY loads. A [id number] enteroenterostomy was accomplished with 2 internal firings of the BARRY conner loads, one at 60 mm and one at 45 mm stapler length. The common opening likewise was closed transversely with the purple load, the angles anastomosed, and the mesenteric defect likewise approximated with some 3-0 Vicryl stitch. At this point, the divided end of the esophagus was opened and the anvil of a 28-mm EEA stapler passed up into the esophagus. This was then re-stapled, and the final proximal staple line was marked for pathology. The anvil was then brought out through the divided end of the esophagus. The main body of the EEA stapler was then brought out through a small opening made in the Derik limb, brought up the anvil, united with it, thus creating the esophagojejunostomy. Upon removal of the stapler, double donuts of mucosa were noted within it. The small bowel was closed off with a vascular staple line. At this point, the esophagojejunostomy was reinforced with some fibrin sealant, as was the small bowel anastomosis and duodenal stump. Two Adams-Latif drains were then placed, one in the area adjacent to the esophagojejunostomy through a stab wound in the left subcostal area and one over the area of the duodenal stump. The area of the duodenal stump also had omentum placed up over it to help facillitate it remaining sealed. The abdomen was irrigated with meropenem-containing saline solution, and at that point, with no further problems noted, the midline fascia was approximated with #2 Vicryl stitch. The skin and subcutaneous tissue were felt to be at high risk for wound infection, if they were left in a closed condition, and were therefore packed open for planned delayed primary closure in 48 hours. The patient was taken to the recovery room in satisfactory condition. Physician volunteer services assistant, Damaris Larry, played an essential role in assisting in this case, helping to position the patient, retract structures as needed, as well as cutting sutures when indicated. Her presence improved patient safety and decreased operative time. Eliecer Ludwig MD /[id number]
== END 2018-03-17 10:04 | disposition home or self-care (01) | DRG 327 ==
LOC: JP.SDS 06:04 → JP.MS 06:04 → EDSTATUS 08:30 → JP.2SS 11:57
PROVIDERS: ADMIT Surgery; ATTEND Surgery
PROC: 0DT60ZZ Resection of Stomach, Open Approach (ICD-10-PCS; 2018-03-13)
PROC: 0DB40ZZ Excision of Esophagogastric Junction, Open Approach (ICD-10-PCS; 2018-03-13)
PROC: 0D130ZA Bypass Lower Esophagus to Jejunum, Open Approach (ICD-10-PCS; 2018-03-13)
PROC: 0DB80ZX Excision of Small Intestine, Open Approach, Diagnostic (ICD-10-PCS; 2018-03-13)
PROC: 0DJ08ZZ Inspection of Upper Intestinal Tract, Via Natural or Artificial Opening Endoscopic (ICD-10-PCS; 2018-03-13)
PROC: 3E0T3BZ Introduction of Anesthetic Agent into Peripheral Nerves and Plexi, Percutaneous Approach (ICD-10-PCS; 2018-03-13)
PROC: 0WQF0ZZ Repair Abdominal Wall, Open Approach (ICD-10-PCS; principal; 2018-03-15)
DX: K25.7 Chronic gastric ulcer without hemorrhage or perforation (principal); K22.10 Ulcer of esophagus without bleeding; K29.50 Unspecified chronic gastritis without bleeding; B96.81 Helicobacter pylori [H. pylori] as the cause of diseases classified elsewhere; I89.8 Other specified noninfective disorders of lymphatic vessels and lymph nodes; I12.9 Hypertensive chronic kidney disease with stage 1 through stage 4 chronic kidney disease, or unspecified chronic kidney disease; E11.22 Type 2 diabetes mellitus with diabetic chronic kidney disease; N18.3 Chronic kidney disease, stage 3 (moderate); Z79.4 Long term (current) use of insulin; N40.1 Benign prostatic hyperplasia with lower urinary tract symptoms; H90.5 Unspecified sensorineural hearing loss; M10.9 Gout, unspecified; E78.5 Hyperlipidemia, unspecified; Z88.0 Allergy status to penicillin; Z88.8 Allergy status to other drugs, medicaments and biological substances; Z88.2 Allergy status to sulfonamides; K25.9 Gastric ulcer, unspecified as acute or chronic, without hemorrhage or perforation; K29.70 Gastritis, unspecified, without bleeding; K29.80 Duodenitis without bleeding; M54.32 Sciatica, left side; M54.31 Sciatica, right side; R33.9 Retention of urine, unspecified
CPT/HCPCS: 36415; 51702; 51798; 74240; 74240-26; 80053; 82962; 83735; 84100; 85027; 86850; 86900; 86901; 88305; 88307; 88309; 88312; 88313; 88341; 88342; 94762; A9270-GY; C9113; J0171; J0330; J0694; J1100; J1170; J1644; J2185; J2250; J2405; J2704; J2710; J2795; J3010; J3411; J3420; J7030; J7042; J7050; Q9967

== ENCOUNTER 2018-03-25 11:15 | Emergency (ER) | payer MEDICARE, BC ==
[2018-03-25] MEDS ORDERED: Lidocaine 2% Jelly 10 ML Urojet MUCMEM ONE (11:30)
[2018-03-25] MEDS ORDERED: Lidocaine 2% Jelly 10 ML Urojet ONE (11:31)
[2018-03-25 11:36] VITALS: BP 148/77
--- NOTE | 2018-03-25 11:52 | EDM.PDOC ---
ED HPI GENERAL MEDICAL PROBLEM - General Chief Complaint: Genitourinary Problem Stated Complaint: S/P CAN NOT PEE Time Seen by Provider: 03/25/18 11:48 Source of Information: Reports: Patient History Limitations: Reports: No Limitations - History of Present Illness INITIAL COMMENTS - FREE TEXT/NARRATIVE: pt arrived not able to void. He went home Sat after gastric surgery and he really has not voidd well since that time. He is very uncomfortable today. He was found to have over 900 cc in his bladder. Onset: Today, Other (pt has been having problems since the time of discharge. ) Duration: Hour(s): Location: Reports: Abdomen Associated Symptoms: Reports: Other (pain from a distended bladder. ) - Related Data Allergies Allergy/AdvReac Type Severity Reaction Status Date / Time allopurinol Allergy Cannot Verified 03/25/18 11:42 Remember Penicillins Allergy Rash Verified 03/25/18 11:42 prednisone Allergy Diarrhea Verified 03/25/18 11:42 Sulfa (Sulfonamide Allergy Hives Verified 03/25/18 11:42 Antibiotics) sulfadiazine Allergy Rash Verified 03/25/18 11:42 Home Meds: Home Meds Pravastatin [Pravachol] 80 mg PO BEDTIME 01/10/14 [History] Terazosin HCl [Terazosin] 2 mg PO BEDTIME 04/15/17 [History] Acetaminophen [Tylenol] 650 mg PO Q6H cup 03/16/18 [Rx] HYDROmorphone [Dilaudid] 2 - 4 mg PO Q4H PRN #30 tablet 03/16/18 [Rx] Past Medical History HEENT History: Reports: Hard of Hearing, Impaired Vision Other HEENT History: wears glasses Cardiovascular History: Reports: High Cholesterol, Hypertension Gastrointestinal History: Reports: Chronic Constipation, Chronic Diarrhea, GERD , Other (See Below) Other Gastrointestinal History: gastric polyp and ulcer Musculoskeletal History: Reports: Arthritis, Gout Other Musculoskeletal History: carpal tunnel Endocrine/Metabolic History: Reports: Diabetes, Type II - Infectious Disease History Infectious Disease History: Reports: Chicken Pox, Measles, Mumps - Past Surgical History HEENT Surgical History: Reports: Tonsillectomy, Other (See Below) Other HEENT Surgeries/Procedures: eye lid surgery GI Surgical History: Reports: Colonoscopy, Hernia Repair/Other Musculoskeletal Surgical History: Reports: Carpal Tunnel, Other (See Below) Other Musculoskeletal Surgeries/Procedures:: right thumb amputation. Dermatological Surgical History: Reports: None Social & Family History - Family History Neurological: Reports: CVA - Caffeine Use Caffeine Use: Reports: Coffee ED ROS GENERAL - Review of Systems Review Of Systems: See Below Constitutional: Reports: No Symptoms HEENT: Reports: No Symptoms Respiratory: Reports: No Symptoms Cardiovascular: Reports: No Symptoms Endocrine: Reports: No Symptoms GI/Abdominal: Reports: Other (pt has abdomanal pain because of a distended bladder. ) : Reports: Urinary Retention Musculoskeletal: Reports: No Symptoms Skin: Reports: No Symptoms ED EXAM, GI/ABD - Physical Exam Exam: See Below Text/Narrative:: pt arrived with pain over the bladder which has about 1000 cc of urine in the bladder. Exam Limited By: No Limitations General Appearance: Alert, Anxious, Moderate Distress Ears: Normal TMs Nose: Normal Inspection Throat/Mouth: Normal Inspection Head: Atraumatic Neck: Normal Inspection Respiratory/Chest: No Respiratory Distress GI/Abdominal Exam: Other ( tender over the bladder. The wound looks good. ) (Male) Exam: Other ( oliveira cath inserted. ) Rectal (Males) Exam: Deferred Back Exam: Normal Inspection Extremities: Normal Inspection Neurological: Alert, Oriented, Normal Cognition Course - Vital Signs Last Recorded V/S: Last Vital Signs Temp 36.7 C 03/25/18 11:48 Pulse 68 03/25/18 11:48 Resp 16 03/25/18 11:48 BP 148/77 H 03/25/18 11:48 Pulse Ox 98 03/25/18 11:48 - Orders/Labs/Meds Orders: Active Orders 24 hr Category Date Time Status UA W/MICROSCOPIC [URIN] Urgent Lab 03/25/18 11:49 Ordered Labs: Laboratory Tests 03/25/18 Range/Units 11:49 Urine Color Yellow Urine Appearance Clear Urine pH 5.0 (4.5-8.0) Ur Specific [place] 1.010 (1.008-1.030) Urine Protein Negative (NEGATIVE) mg/dL Urine Glucose (UA) Normal (NEGATIVE) mg/dL Urine Ketones Negative (NEGATIVE) mg/dL Urine Occult Blood Negative (NEGATIVE) Urine Nitrite Negative (NEGAITVE) Urine Bilirubin Negative (NEGATIVE) Urine Urobilinogen 1 (NORMAL) mg/dL Ur Leukocyte Esterase Negative (NEGATIVE) Urine RBC 0-5 (0-5) Urine WBC 0-5 (0-5) Ur Epithelial Cells Rare Amorphous Sediment Not seen Urine Bacteria Few Urine Mucus Not seen Meds: Medications Discontinued Medications Generic Name Dose Route Start Last Admin Trade Name Diana PRN Reason Stop Dose Admin Lidocaine HCl 10 ml 03/25/18 11:30 03/25/18 11:50 Xylocaine 2% Jelly MUCMEM 03/25/18 11:31 10 ml ONETIME ONE Administration Lidocaine HCl Confirm 03/25/18 11:31 03/25/18 11:50 Xylocaine 2% Jelly Administered 03/25/18 11:32 Not Given Dose 10 ml .ROUTE .STK-MED ONE - Re-Assessments/Exams Free Text/Narrative Re-Assessment/Exam: 03/25/18 12:10 ua was clear. Departure - Departure Time of Disposition: 12:10 Disposition: Home, Self-Care 01 Condition: Fair Clinical Impression: Urinary retention - Discharge Information Referrals: PCP,None [Primary Care Provider] - Forms: ED Department Discharge Care Plan Goals: leg bag, leave cath in until his mon appt. Remove cath at that time, cont meds the same - My Orders Last 24 Hours: My Active Orders 03/25/18 11:49 UA W/MICROSCOPIC [URIN] Urgent - Assessment/Plan Last 24 Hours: My Active Orders 03/25/18 11:49 UA W/MICROSCOPIC [URIN] Urgent
== END 2018-03-25 12:46 | disposition home or self-care (01) ==
LOC: JP.ED 11:15
DX: R33.9 Retention of urine, unspecified (principal); I10 Essential (primary) hypertension; E78.00 Pure hypercholesterolemia, unspecified; E11.9 Type 2 diabetes mellitus without complications; M19.90 Unspecified osteoarthritis, unspecified site; K21.9 Gastro-esophageal reflux disease without esophagitis; Z88.0 Allergy status to penicillin; Z88.2 Allergy status to sulfonamides; Z88.8 Allergy status to other drugs, medicaments and biological substances
CPT/HCPCS: 81001; 99284

== ENCOUNTER 2018-06-07 12:26 | Emergency (ER) | payer MEDICARE, BC ==
[2018-06-07 12:54] VITALS: BP 134/72
[2018-06-07] MEDS ORDERED: Ketorolac 30 MG/ML SDV IM ONE (13:07)
--- NOTE | 2018-06-07 13:09 | EDM.PDOC ---
ED HPI GENERAL MEDICAL PROBLEM - General Chief Complaint: General Stated Complaint: CHEST PAIN FOR A WEEK Time Seen by Provider: 06/07/18 13:00 Source of Information: Reports: Patient, Family, Old Records, RN Notes Reviewed History Limitations: Reports: No Limitations - History of Present Illness INITIAL COMMENTS - FREE TEXT/NARRATIVE: 82-year-old gentleman presents to the emergency department today complaint of chest and shoulder pain,, he states he's had this pain for about a week he has been putting some word and working around the house. 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 - Related Data Allergies Allergy/AdvReac Type Severity Reaction Status Date / Time allopurinol Allergy Cannot Verified 06/07/18 12:40 Remember Penicillins Allergy Rash Verified 06/07/18 12:40 prednisone Allergy Diarrhea Verified 06/07/18 12:40 Sulfa (Sulfonamide Allergy Hives Verified 06/07/18 12:40 Antibiotics) sulfadiazine Allergy Rash Verified 06/07/18 12:40 Home Meds: Home Meds Pravastatin [Pravachol] 80 mg PO BEDTIME 01/10/14 [History] Terazosin HCl [Terazosin] 2 mg PO BEDTIME 04/15/17 [History] Acetaminophen [Tylenol] 650 mg PO Q6H cup 03/16/18 [Rx] Gabapentin Enacarbil [Horizant] 300 mg PO DAILY 06/07/18 [History] Past Medical History HEENT History: Reports: Hard of Hearing, Impaired Vision Other HEENT History: wears glasses Cardiovascular History: Reports: High Cholesterol, Hypertension Gastrointestinal History: Reports: Chronic Constipation, Chronic Diarrhea, GERD , Other (See Below) Other Gastrointestinal History: gastric polyp and ulcer Musculoskeletal History: Reports: Arthritis, Gout Other Musculoskeletal History: carpal tunnel Endocrine/Metabolic History: Reports: Diabetes, Type II Hematologic History: Reports: B12 Deficiency - Infectious Disease History Infectious Disease History: Reports: Chicken Pox, Measles, Mumps, Pertussis ( Whooping Cough), Shingles - Past Surgical History Head Surgeries/Procedures: Reports: None HEENT Surgical History: Reports: Tonsillectomy, Other (See Below) Other HEENT Surgeries/Procedures: eye lid surgery Cardiovascular Surgical History: Reports: None GI Surgical History: Reports: Colonoscopy, EGD, Hernia Repair/Other Endocrine Surgical History: Reports: None Musculoskeletal Surgical History: Reports: Carpal Tunnel, Other (See Below) Other Musculoskeletal Surgeries/Procedures:: right thumb amputation. Dermatological Surgical History: Reports: None Social & Family History - Family History Neurological: Reports: CVA - Tobacco Use Smoking Status *Q: Never Smoker Second Hand Smoke Exposure: No - Caffeine Use Caffeine Use: Reports: Coffee, Soda - Recreational Drug Use Recreational Drug Use: No ED ROS GENERAL - Review of Systems Review Of Systems: See Below Constitutional: Reports: No Symptoms HEENT: Reports: No Symptoms Respiratory: Reports: No Symptoms Cardiovascular: Reports: Chest Pain GI/Abdominal: Reports: No Symptoms : Reports: No Symptoms Musculoskeletal: Reports: No Symptoms Skin: Reports: No Symptoms Neurological: Reports: No Symptoms ED EXAM, GENERAL - Physical Exam Exam: See Below Free Text/Narrative:: General: Male, not in any distress, alert and oriented x3 HEENT: head is atraumatic normocephalic, eyes pupils equal round reactive to light, sclera clear no conjunctivitis appreciated. Ears hearing aids in place bilaterally. Nose no septal deviation, nares are clear, no blood present. Mouth mucosa is moist and pink no erythema or exudate noted in soft palate, tongue is midline uvula is midline, dentition is intact. Neck: Supple no thyromegaly no tracheal deviation. Nodes: Cervical nodes subclavicular nodes nontender no palpable lymphadenopathy noted. Lungs: clear to auscultation bilaterally with symmetrical respirations, no adventitious noise appreciated. CV: Regular rate and rhythm S1 and S2 appreciated no murmurs rubs or gallops noted. Abdomen: Soft, nontender, no palpable masses or organomegaly appreciated, no distention no guarding bowel sounds are present, . Neuro: Cranial nerves II through XII grossly intact Skin: Warm and dry, intact Extremities: No lower extremity edema appreciated, Course - Vital Signs Last Recorded V/S: Last Vital Signs Temp 95.9 F 06/07/18 12:57 Pulse 53 L 06/07/18 12:57 Resp 11 L 06/07/18 12:57 BP 134/72 06/07/18 12:57 Pulse Ox 100 06/07/18 12:57 - Orders/Labs/Meds Orders: Active Orders 24 hr Category Date Time Status Cardiac Monitoring [RC] .As Directed Care 06/07/18 13:07 Active EKG Documentation Completion [RC] ASDIRECTED Care 06/07/18 13:07 Active EKG 12 Lead [EK] Stat Ther 06/07/18 13:07 Ordered Labs: Laboratory Tests 06/07/18 06/07/18 Range/Units 13:15 13:15 WBC 5.9 (4.5-11.0) K/uL RBC 3.87 L (4.30-5.90) M/uL Hgb 11.3 L (12.0-15.0) g/dL Hct 34.3 L (40.0-54.0) % MCV 89 (80-98) fL MCH 29 (27-31) pg MCHC 33 (32-36) % Plt Count 142 L (150-400) K/uL Neut % (Auto) 69 H (36-66) % Lymph % (Auto) 20 L (24-44) % [place] % (Auto) 8 H (2-6) % Eos % (Auto) 2 (2-4) % Baso % (Auto) 1 (0-1) % Sodium 141 (140-148) mmol/L Potassium 4.5 (3.6-5.2) mmol/L Chloride 106 (100-108) mmol/L Carbon Dioxide 25 (21-32) mmol/L Anion Gap 10.3 (5.0-14.0) mmol/L BUN 25 H (7-18) mg/dL Creatinine 1.6 H (0.8-1.3) mg/dL Est Cr Clr Drug Dosing 14.84 mL/min Estimated GFR (MDRD) 42 L (>60) Glucose 147 H (74-106) mg/dL Calcium 9.1 (8.5-10.1) mg/dL Total Bilirubin 0.6 (0.2-1.0) mg/dL AST 25 (15-37) U/L ALT 50 (12-78) U/L Alkaline Phosphatase 71 (46-116) U/L Troponin I < 0.017 (0.000-0.056) ng/mL Total Protein 6.3 L (6.4-8.2) g/dL Albumin 3.5 (3.4-5.0) g/dL Globulin 2.8 (2.3-3.5) g/dL Albumin/Globulin Ratio 1.2 (1.2-2.2) Meds: Medications Discontinued Medications Generic Name Dose Route Start Last Admin Trade Name Diana PRN Reason Stop Dose Admin Ketorolac Tromethamine 30 mg 06/07/18 13:07 06/07/18 13:18 Toradol IM 06/07/18 13:08 30 mg ONETIME ONE Administration Departure - Departure Time of Disposition: 14:10 Disposition: Home, Self-Care 01 Condition: Good Clinical Impression: Chest wall pain - Discharge Information Referrals: Viraj Sethi MD [Primary Care Provider] - Forms: ED Department Discharge Additional Instructions: Use Tylenol as needed for pain control, Please followup with your primary care provider in 5-7 days if not better, please call return to the emergency department with worsening of symptoms. - My Orders Last 24 Hours: My Active Orders 06/07/18 13:07 Cardiac Monitoring [RC] .As Directed EKG Documentation Completion [RC] ASDIRECTED EKG 12 Lead [EK] Stat - Assessment/Plan Last 24 Hours: My Active Orders 06/07/18 13:07 Cardiac Monitoring [RC] .As Directed EKG Documentation Completion [RC] ASDIRECTED EKG 12 Lead [EK] Stat Plan: Assessment Acuity = acute Site and laterality = chest wall pain Etiology = secondary to muscle skeletal injury Manifestations = none Location of injury = Home Lab values = hemoglobin low 11.3 consistent normochromic anemia creatinine elevated 1.6 consistent chronic renal failure stage G IIIB, EKG demonstrates a sinus rhythm there is no ST elevations or depressions chest x-ray shows no acute process Plan He had good relief with the Toradol injection pain resolved, recommend using Tylenol or the next couple days for pain control and modifying his woodcutting to help relieve the pain, follow-up primary care 3-5 days if not better This note was dictated using [employer] recognition software please call with any questions on syntax or grammar.
--- NOTE | 2018-06-07 13:35 | CR ---
Chest 2V FINDINGS: The heart and vascular structures are normal in appearance. No infiltrates or effusions are demonstrated. There are small calcified granulomas in the mid left lung. There are chronic degenerat vazquez findings throughout the thoracic spine. Impression: 1. No acute findings.
== END 2018-06-07 14:23 | disposition home or self-care (01) ==
LOC: JP.ED 12:26
DX: S29.001A Unspecified injury of muscle and tendon of front wall of thorax, initial encounter (principal); E11.9 Type 2 diabetes mellitus without complications; I10 Essential (primary) hypertension; E78.00 Pure hypercholesterolemia, unspecified; Z88.0 Allergy status to penicillin; Z88.2 Allergy status to sulfonamides; Z88.8 Allergy status to other drugs, medicaments and biological substances; Z79.899 Other long term (current) drug therapy; X58.XXXA Exposure to other specified factors, initial encounter
CPT/HCPCS: 36415; 71046; 80053; 84484; 85025; 93005; 96372; 99285; J1885

== ENCOUNTER 2019-05-27 23:52 | Observation (INO) | payer MEDICARE, BC ==
[2019-05-27] MEDS ORDERED: fentaNYL 100 MCG/2 ML SDV IVPUSH ONE (23:57)
--- NOTE | 2019-05-28 00:06 | EDM.PDOC ---
ED HPI GENERAL MEDICAL PROBLEM - General Chief Complaint: Abdominal Pain Stated Complaint: ABDOMINAL PAIN Time Seen by Provider: 05/27/19 23:52 Source of Information: Reports: Patient, Family History Limitations: Reports: No Limitations - History of Present Illness INITIAL COMMENTS - FREE TEXT/NARRATIVE: 83-year-old male was just getting ready to go to bed tonight when he developed substernal and right upper quadrant/upper abdominal pain. It worsened over the next half hour so he felt he needed to come in. He arrived very uncomfortable with pain radiating down into the mid abdomen. No nausea or vomiting, some pain with breathing. He is hyperventilating because of the pain. Onset: Gradual (Pain started gradually but worsened quickly, he's had pain for 2 hours) Location: Reports: Other (Upper abdomen and substernal area, radiates somewhat to the back.) Associated Symptoms: Reports: Fever/Chills (Unknown if he was feverish but he was chilled at home), Malaise, Other (Nausea but no vomiting) - Related Data Allergies Allergy/AdvReac Type Severity Reaction Status Date / Time allopurinol Allergy Cannot Verified 05/28/19 00:06 Remember Penicillins Allergy Rash Verified 05/28/19 00:06 prednisone Allergy Diarrhea Verified 05/28/19 00:06 Sulfa (Sulfonamide Allergy Hives Verified 05/28/19 00:06 Antibiotics) sulfadiazine Allergy Rash Verified 05/28/19 00:06 Home Meds: Home Meds Pravastatin [Pravachol] 80 mg PO BEDTIME 01/10/14 [History] Terazosin HCl [Terazosin] 2 mg PO BEDTIME 04/15/17 [History] Acetaminophen [Tylenol] 650 mg PO Q6H cup 03/16/18 [Rx] Past Medical History HEENT History: Reports: Hard of Hearing, Impaired Vision Other HEENT History: wears glasses Cardiovascular History: Reports: High Cholesterol, Hypertension Gastrointestinal History: Reports: Chronic Constipation, Chronic Diarrhea, GERD , Other (See Below) Other Gastrointestinal History: gastric polyp and ulcer Musculoskeletal History: Reports: Arthritis, Gout Other Musculoskeletal History: carpal tunnel Endocrine/Metabolic History: Reports: Diabetes, Type II Hematologic History: Reports: B12 Deficiency - Infectious Disease History Infectious Disease History: Reports: Chicken Pox, Measles, Mumps, Pertussis ( Whooping Cough), Shingles - Past Surgical History Head Surgeries/Procedures: Reports: None HEENT Surgical History: Reports: Tonsillectomy, Other (See Below) Other HEENT Surgeries/Procedures: eye lid surgery Cardiovascular Surgical History: Reports: None GI Surgical History: Reports: Colonoscopy, EGD, Hernia Repair/Other Endocrine Surgical History: Reports: None Musculoskeletal Surgical History: Reports: Carpal Tunnel, Other (See Below) Other Musculoskeletal Surgeries/Procedures:: right thumb amputation. Dermatological Surgical History: Reports: None Social & Family History - Family History Neurological: Reports: CVA - Caffeine Use Caffeine Use: Reports: Coffee, Soda ED ROS GENERAL - Review of Systems Review Of Systems: See Below Constitutional: Reports: Chills, Malaise HEENT: Reports: No Symptoms Cardiovascular: Reports: Chest Pain (Substernal nonradiating) ED EXAM, GI/ABD - Physical Exam Exam: See Below Exam Limited By: No Limitations General Appearance: Alert, Mild Distress Eyes: Bilateral: Normal Appearance (No jaundice) Respiratory/Chest: No Respiratory Distress, Lungs Clear Cardiovascular: Regular Rate, Rhythm GI/Abdominal Exam: Tender (Extremely tender to palpation in the right upper quadrant and epigastric area) Extremities: No: Pedal Edema Neurological: Alert, Oriented Psychiatric: Anxious Skin Exam: Warm, Dry Course - Vital Signs Last Recorded V/S: Last Vital Signs Temp 96.9 F 05/28/19 03:51 Pulse 54 L 05/28/19 03:51 Resp 18 05/28/19 03:51 BP 146/71 H 05/28/19 03:51 Pulse Ox 97 05/28/19 03:51 - Orders/Labs/Meds Orders: Medication Orders Fentanyl (Sublimaze) 50 mcg IV Q1H PRN PRN Reason: PAIN Sodium Chloride (Normal Saline) 1,000 mls @ 125 mls/hr IV .Q8H WILMER Last Admin: 05/28/19 05:24 Dose: 125 mls/hr Labs: Laboratory Tests 05/27/19 05/27/19 05/27/19 Range/Units 23:55 23:55 23:55 WBC 6.4 (4.5-11.0) K/uL RBC 3.54 L (4.30-5.90) M/uL Hgb 11.1 L (12.0-15.0) g/dL Hct 33.7 L (40.0-54.0) % MCV 95 (80-98) fL MCH 31 (27-31) pg MCHC 33 (32-36) % Plt Count 143 L (150-400) K/uL Neut % (Auto) 65 (36-66) % Lymph % (Auto) 24 (24-44) % [place] % (Auto) 9 H (2-6) % Eos % (Auto) 1 L (2-4) % Baso % (Auto) 0 (0-1) % Sodium 139 L (140-148) mmol/L Potassium 4.4 (3.6-5.2) mmol/L Chloride 103 (100-108) mmol/L Carbon Dioxide 21 (21-32) mmol/L Anion Gap 14.7 H (5.0-14.0) mmol/L BUN 53 H D (7-18) mg/dL Creatinine 2.3 H (0.8-1.3) mg/dL Est Cr Clr Drug Dosing 19.93 mL/min Estimated GFR (MDRD) 27 L (>60) Glucose 100 (74-106) mg/dL Calcium 9.2 (8.5-10.1) mg/dL Total Bilirubin 0.6 (0.2-1.0) mg/dL AST 254 H D (15-37) U/L ALT 197 H (12-78) U/L Alkaline Phosphatase 113 (46-116) U/L Troponin I < 0.017 (0.000-0.056) ng/mL Total Protein 6.9 (6.4-8.2) g/dL Albumin 3.9 (3.4-5.0) g/dL Globulin 3.0 (2.3-3.5) g/dL Albumin/Globulin Ratio 1.3 (1.2-2.2) Amylase 188 H (25-115) U/L Lipase 373 (73-393) U/L Meds: Medications Generic Name Dose Route Start Last Admin Trade Name Freq PRN Reason Stop Dose Admin Fentanyl 50 mcg 05/28/19 04:10 Sublimaze IV Q1H PRN PAIN Sodium Chloride 1,000 mls @ 125 mls/hr 05/28/19 04:15 05/28/19 05:24 Normal Saline IV 125 mls/hr .Q8H WILMER Administration Discontinued Medications Generic Name Dose Route Start Last Admin Trade Name Freq PRN Reason Stop Dose Admin Fentanyl 50 mcg 05/27/19 23:57 05/28/19 00:13 Sublimaze IVPUSH 05/27/19 23:58 50 mcg ONETIME ONE Administration Sodium Chloride 1,000 mls @ 250 mls/hr 05/28/19 02:15 05/28/19 02:22 Normal Saline IV 250 mls/hr ASDIRECTED WILMER Administration - Re-Assessments/Exams Free Text/Narrative Re-Assessment/Exam: 05/28/19 00:21 An IV was started and the patient was given 25 g of IV fentanyl. An ultrasound was placed over the abdomen which showed no significant dilatation of the aorta and a large gallbladder. CBC, CMP, amylase lipase and troponin were drawn and the patient was sent back for a CT of his chest abdomen and pelvis without contrast. 05/28/19 02:10 White count is normal, amylase was mildly elevated at 188, AST and ALT L or so moderately elevated. Bilirubin and alkaline phosphatase are normal. Patient's pain slowly improved, a CT of the chest abdomen and pelvis was generally unremarkable for sources of acute pain. Patient was reexamined and still has a very tender right upper quadrant, with the elevated AST, ALT and amylase at like the patient admitted for the night for IV hydration, pain control, a formal gallbladder ultrasound in the morning and possibly surgical consultation. I discussed this with Dr. Viramontes and he kindly agreed to come in and evaluate the patient tonight. Departure - Departure Time of Disposition: 04:05 Disposition: Admitted As Inpatient 67 Clinical Impression: Abdominal pain Qualifiers: Abdominal location: right upper quadrant Qualified Code(s): R10.11 - Right upper quadrant pain - Discharge Information
--- NOTE | 2019-05-28 01:17 | CRLCT ---
INDICATION: Chest, upper abdominal pain TECHNIQUE: CT chest, abdomen, and pelvis without i.v. contrast. Coronal and sagittal reformats were obtained. COMPARISON: 02/04/2018 FINDINGS: CHEST: Cardiovascular: The heart has an unremarkable appearance and size. The pulmonary arteries are unremarkable in appearance. No sign of aneurysm seen in the thoracic aorta. The presence of aortic dissection cannot be evaluated without the use of intravenous contrast. Severe atherosclerotic calcifications are noted in the coronary arteries. Mediastinum: No mass or adenopathy seen. Lung: Small calcified granulomas are present in the lower lobes bilaterally. There is a cluster of calcified granulomas present measuring 1.8 x 0.7 cm, abutting the left major fissure. Pleura and pericardium: No sign of pleural effusion seen. No significant pericardial effusion is present. Chest wall and axilla: No mass or adenopathy seen. Bone: Unremarkable for age. No acute osseous injuries seen. ABDOMEN/PELVIS: Liver: Multiple liver cysts are present measuring up to 9 mm. Spleen: Unremarkable. Pancreas: Unremarkable. Gallbladder: Unremarkable. Kidney: There is a 2 mm stone present in the lower pole of the left kidney there a peripelvic cyst measuring 2 cm is seen in the right lower pole. The small cortical cysts noted on prior examination are less well visualized without intravenous contrast. Adrenal: Unremarkable. Bowel: Large amount of stool is present throughout the colon which may be due to chronic constipation. There is a gasless density near the ileocecal valve without any apparent obstruction of the terminal ileum. This is most likely due to small bowel contents incompletely mixing with cecal stool. The appendix is at the upper limits of normal in size, measuring 8 mm in diameter without wall thickening or surrounding inflammatory changes. Previous surgical gastric bypass is noted. Vascular: Unremarkable. Lymph: Unremarkable. Peritoneum: Unremarkable. No pneumoperitoneum is seen. No significant ascites is noted. Pelvis: Severe enlargement of the prostate gland is noted. Soft tissue: Unremarkable. Bone: Unremarkable for age. No acute osseous injuries seen. IMPRESSIONS: 1. Severe atherosclerotic calcifications are noted in the coronary arteries. 2. Severe enlargement of the prostate gland is noted. Correlation with physical examination and PSA levels are recommended. 3. The appendix is at the upper limits of normal in size, measuring 8 mm in diameter without wall thickening or surrounding inflammatory changes. This is indeterminate by imaging and clinical followup is recommended. Dictated by Angel Christie MD @ 05/28/2019 1:15:44 AM Please note that all CT scans at this facility use dose modulation, iterative reconstruction, and/or weight-based dosing when appropriate to reduce radiation dose to as low as reasonably achievable. Dictated by: Angel Christie MD @ 05/28/2019 01:15:52 (Electronically Signed)
[2019-05-28] MEDS ORDERED: Sodium Chloride 0.9% 1,000 ML IV SCH ×2 (02:15→04:15)
[2019-05-28] MEDS ORDERED: fentaNYL 100 MCG/2 ML SDV IV PRN (04:10)
[2019-05-28] MEDS ORDERED: Dextrose 5%-Lactated Ringers 1,000 ML IV SCH (07:45)
--- NOTE | 2019-05-28 09:53 | CRLUS ---
INDICATION: Right upper quadrant abdominal pain. TECHNIQUE: Ultrasound abdomen complete. Sonographic images of the entire abdomen were obtained using plata-scale and color Doppler. COMPARISON: 05/28/2019 CT FINDINGS: Liver: Normal in size and echotexture. No intrahepatic biliary ductal dilatation. Multiple small anechoic hepatic cysts measuring up to 1 cm. Gallbladder: Adherent gallbladder sludge versus polyp measuring 3 mm in diameter. No gallstones.. Normal wall thickness. No pericholecystic fluid. Negative sonographic Suarez`s sign. Common bile duct: 3 mm. Pancreas: Imaged portion of the pancreatic body is unremarkable. Spleen: Normal in size and appearance. Kidneys: Both kidneys are normal in size. Normal echotexture and cortex. No solid renal masses or hydronephrosis. Small punctate nonobstructing bilateral renal calculi measuring up to 5 mm. Circumscribed bilateral renal cysts measuring up to 2.3 cm in diameter. Vasculature: Proximal abdominal aorta and IVC are normal in caliber. IMPRESSION: 1. Adherent gallbladder sludge versus polyp measuring up to 3 mm. Consider follow-up ultrasound in 12 months. 2. Hepatic and renal cysts. 3. Punctate nonobstructing bilateral renal calculi. Dictated by Jacky Yeung MD @ May 28 2019 9:35AM Signed by Dr. Jacky Yeung @ May 28 2019 9:50AM
[2019-05-28] MEDS ORDERED: Dextrose 5%-Lactated Ringers 1,000 ML with MVI, Adult with Vitamin K 10 ML, Chromium/Co... IV SCH ×3 (10:00)
--- NOTE | 2019-05-28 10:55 | HP ---
CHIEF COMPLAINT: Right upper quadrant pain. 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 All of sudden about 10 p.m., he complained of increased right upper quadrant pain. No nausea or vomiting. No diarrhea or constipation, bloody or black stools. He had eaten earlier, but not right before. He had not had this pain previously. He came to the emergency room for further evaluation. He had significant right upper quadrant pain that was improved with 50 mcg of fentanyl and did feel better. CT scan showed severe enlargement of the prostate. Appendix was upper limits of normal size without any wall thickening. Gallbladder was unremarkable. PAST MEDICAL HISTORY: He has had the benign stomach tumor and also removed part of his stomach last year. It sounds he has had a history of hypertension and hyperlipidemia. MEDICATIONS: I cannot see his current med list because I cannot get in the computer. It sounds like he may take something for blood pressure and cholesterol. ALLERGIES: REVIEWED. SOCIAL HISTORY: Nonsmoker. Rare alcohol use. FAMILY HISTORY: Noncontributory. REVIEW OF SYSTEMS: Denies headaches, vision changes, upper respiratory symptoms. No chest pain, shortness of breath, cough, nausea, vomiting, diarrhea, or constipation. He does have the right upper quadrant pain, which is now better. No urinary problems. No swelling in his legs. No skin problems reported. No neurologic complaints reported. OBJECTIVE: HEENT: Pharynx is clear. NECK: Supple. No adenopathy, thyromegaly, JVD, or carotid bruits. LUNGS: Clear. HEART: Regular without murmurs. ABDOMEN: Soft. He did have some mild right upper quadrant pain now when I saw him. This was after he has had pain medicine. No mass or organomegaly palpated, but it did feel little bit full in the right upper quadrant. The rest of the abdomen was nontender. EXTREMITIES: No edema. SKIN: Negative. NEUROLOGIC: Cranial nerves 2 through 12 are grossly intact. Alert and oriented x3. LABORATORY DATA: Reviewed. ASSESSMENT AND PLAN: Right upper quadrant pain. We will admit him under observation and consult Surgery in the morning. Transfer his care to the Hospitalist Service. Check another CBC, lipase, amylase, and CMP in the morning. It sounds like a couple of liver enzymes were slightly elevated and amylase was borderline. Continue with IV fentanyl as needed and IV fluids, and we will get an ultrasound in the morning to look at his gallbladder. Jacky Viramontes MD /[id number]
[2019-05-28] MEDS ORDERED: Polyethylene Glycol 3350 Powder 238 GM Bot PO ONE (11:00)
[2019-05-29] MEDS ORDERED: Dextrose 5%-Lactated Ringers 1,000 ML IV SCH (04:00)
[2019-05-29] MEDS ORDERED: Acetaminophen Soln 650 MG/20.3 ML UD Cup PO SCH (08:00)
[2019-05-29 08:06] VITALS: BP 121/66; PULSE 71
--- NOTE | 2019-05-29 08:21 | PCM.DCSUM1 ---
Discharge Summary - Hospital Course Free Text/Narrative:: 83-year-old gentleman admitted to the emergency department for abdominal pain predominantly right upper quadrant. Underwent CT scan and ultrasound which demonstrated consistent findings of normal gallbladder wall thickness gallbladder sludge no significant stones appreciated no sign of cholecystitis recommend follow-up evaluation of gallbladder and 12 months. Consultation with general surgery Dr. 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 He underwent the colonoscopy prep with good success in the morning his abdominal pain has been relieved. 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 Status: Acute Priority : High Current Visit: Yes - Patient Summary/Data Consults: Consultations 05/28/19 04:15 Consult to Physician [CONS] Routine Consulting Provider: Eliecer Ludwig Courtesy Call Completed to Consulting Physician: No Reason for Consult: RUQ pain Special Instructions: notified by nurse at report - Patient Instructions Diet: Regular Diet as Tolerated - Discharge Plan Home Medications: Home Meds Pravastatin [Pravachol] 80 mg PO BEDTIME 01/10/14 [History] Terazosin HCl [Terazosin] 2 mg PO BEDTIME 04/15/17 [History] Acetaminophen [Tylenol] 650 mg PO Q6H cup 03/16/18 [Rx] Oxygen Therapy Mode: Room Air Patient Handouts: Constipation, Adult Forms: ED Department Discharge Referrals: Viraj Sethi MD [Primary Care Provider] - - Discharge Summary/Plan Comment DC Time >30 min.: No Discharge Summary/Plan Comment: Plan will be to follow up with primary care in 7-10 days if no improvement, continue to use the MiraLAX 1 capful per day until loose stools and and adjust as needed, continue to push fluids - General Info Date of Service: 05/29/19 Admission Dx/Problem (Free Text: 83-year-old gentleman admitted to the emergency department for sudden onset of abdominal pain. During evaluation underwent CT scan concern for gallbladder disease however CT scan revealed gallbladder sludge no thickening of the gallbladder wall no significant gallstones no signs of cholecystitis. Also underwent abdominal ultrasound which was consistent with the CT scan and recommended follow-up in [address] 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 He underwent the colonoscopy prep with good success. After a night of observation his abdominal pain was resolved Functional Status: Reports: Pain Controlled - Review of Systems General: Reports: No Symptoms Pulmonary: Reports: No Symptoms Cardiovascular: Reports: No Symptoms Gastrointestinal: Reports: Diarrhea - Patient Data Vitals - Most Recent: Last Vital Signs Temp 96.4 F 05/29/19 08:03 Pulse 71 05/29/19 08:03 Resp 18 05/29/19 08:03 BP 121/66 05/29/19 08:03 Pulse Ox 100 05/29/19 08:03 Weight - Most Recent: 57.5 kg I&O - Last 24 hours: Intake & Output 05/28/19 05/29/19 05/29/19 22:59 06:59 14:59 Intake Total 2583 Balance 2583 Lab Results - Last 24 hrs: Laboratory Results - last 24 hr 05/28/19 05/28/19 Range/Units 04:40 04:40 Ferritin 998 H (8-388) ng/ml Vitamin B12 1944 H (193-986) pg/ml Folate > 20.0 (8.6-58.9) ng/ml Med Orders - Current: Current Medications Acetaminophen (Tylenol) 650 mg PO Q6H WILMER Fentanyl (Sublimaze) 50 mcg IV Q1H PRN PRN Reason: PAIN Non-Formulary Medication (Pravastatin [Pravachol]) 80 mg PO BEDTIME WILMER Non-Formulary Medication (Terazosin Hcl [Terazosin]) 2 mg PO BEDTIME WILMER Senna/Docusate Sodium (Senna Plus) 2 tab PO BEDTIME WILMER Discontinued Medications Fentanyl (Sublimaze) 50 mcg IVPUSH ONETIME ONE Stop: 05/27/19 23:58 Last Admin: 05/28/19 00:13 Dose: 50 mcg Sodium Chloride (Normal Saline) 1,000 mls @ 250 mls/hr IV ASDIRECTED WILMER Last Admin: 05/28/19 02:22 Dose: 250 mls/hr Sodium Chloride (Normal Saline) 1,000 mls @ 125 mls/hr IV .Q8H WILMER Last Admin: 05/28/19 05:24 Dose: 125 mls/hr Dextrose/Lactated Ringer's (Dextrose 5%-Lactated Ringers) 1,000 mls @ 125 mls/ hr IV .Q8H WILMER Dextrose/Lactated Ringer's (Dextrose 5%-Lactated Ringers) 1,000 mls @ 125 mls/ hr IV .Q8H WILMER Multivitamins/Minerals 10 ml/Chromium/Copper/Manganese/Seleni/Zn 1 ml/ Dextrose/ Lactated Ringer's 1,011 mls @ 125 mls/hr IV .Q8H6M [facility] Stop: 05/28/19 23:00 Last Admin: 05/28/19 09:55 Dose: 125 mls/hr Polyethylene Glycol (Miralax) 238 gm PO ONETIME ONE Stop: 05/28/19 11:01 Last Admin: 05/28/19 11:42 Dose: 238 gm - Exam General: Reports: Alert, Oriented Lungs: Reports: Normal Respiratory Effort GI/Abdominal Exam: Soft, Non-Tender
--- NOTE | 2019-05-29 09:16 | PN ---
DATE OF SERVICE: 05/29/2019 SUBJECTIVE: Mateo was asked to be seen for a consultation by Jacky Viramontes MD in regard to admission to the hospital for constipation. REVIEW OF SYSTEMS: HEENT: Negative. NECK: Negative. HEART: Regular rate. Negative for any chest pain, shortness of breath. LUNGS: No cough. ABDOMEN: He states he woke up from a deep sleep with severe abdominal pain. He came into the emergency room, was admitted to the hospital, was given medication and he started having bowel movements and he states he feels great now. He cannot remember his last colonoscopy. GENITOURINARY: Negative. EXTREMITIES: Negative for joint pain or swelling. NEURO: Negative for loss of coordination. PSYCHIATRIC: Negative. SKIN: Without rash. Remainder of review of systems negative for any pertinent positives and negatives. OBJECTIVE: GENERAL: Mateo Laureano is an 83-year-old male. VITAL SIGNS: Height is 5 feet 2.99 inches, weight is 126 pounds. TPR is 96.4, 71, 18, blood pressure 121/66. HEENT: Negative. NECK: Supple. HEART: Regular rate and rhythm. LUNGS: Clear. ABDOMEN: Soft and nontender. EXTREMITIES: Without peripheral edema. ASSESSMENT: Functional constipation. PLAN: Rx Senna-S 2 tablets at bedtime. Resume home medications. Discharge per hospitalist. Damaris Larry PA-C /[id number]
[2019-05-29] MEDS ORDERED: Pravastatin 20 MG Tab PO SCH (21:00)
[2019-05-29] MEDS ORDERED: Terazosin 1 MG Cap PO SCH (21:00)
--- NOTE | 2019-06-03 14:52 | PN ---
DATE OF SERVICE: 05/28/2019 The patient was admitted earlier this morning with abdominal pain. On workup with a CAT scan, it shows quite a bit in way of constipation, but nothing that appeared to be significant. He is fairly comfortable at present. His liver function tests are elevated and bilirubin fairly high, and we will get an ultrasound to see if there is any evidence of cholecystitis. If this is negative, then we can work on bowel stimulation. Otherwise, if the patient is status post esophagogastrectomy with Derik-en-Y reconstruction, we will check B12, folate, ferritin levels today and add some IV fluids. We will wait to see what the ultrasound shows. If this is abnormal, we may consider a cholecystectomy later today. Eliecer Ludwig MD /[id number]
== END 2019-05-29 10:24 | disposition home or self-care (01) ==
LOC: JP.ED 23:52 → JP.MS 05-28 03:21
PROVIDERS: ADMIT Family Medicine; ATTEND Family Medicine
DX: K59.04 Chronic idiopathic constipation (principal); R07.2 Precordial pain; K83.8 Other specified diseases of biliary tract; E78.00 Pure hypercholesterolemia, unspecified; I10 Essential (primary) hypertension; K21.9 Gastro-esophageal reflux disease without esophagitis; M19.90 Unspecified osteoarthritis, unspecified site; M10.9 Gout, unspecified; E11.9 Type 2 diabetes mellitus without complications; Z79.899 Other long term (current) drug therapy; Z88.8 Allergy status to other drugs, medicaments and biological substances; Z88.0 Allergy status to penicillin; Z88.2 Allergy status to sulfonamides
CPT/HCPCS: 36415; 71250; 74176; 76700; 80053; 82150; 82607; 82728; 82746; 83690; 84484; 85025; 96361; 96365; 96366; 96375; 99285; A9270; G0378; J3010; J7030; J7042; 96374; 99217; 99284

== ENCOUNTER 2020-09-22 08:49 | Day surgery (SDC) | payer MEDICARE, BC ==
[~2020-09-22 08:49] MED LIST changes: -Acetaminophen 500 MG Tab PO ONE; -Celecoxib 200 MG Cap PO ONE; -Gabapentin 300 MG Cap PO ONE; +Midazolam 1 MG/ML 2 ML SDV ONE; +Propofol 200 MG/20 ML SDV ONE; -Scopolamine 1.5 MG Transdermal Patch TOP SCH; +fentaNYL 100 MCG/2 ML SDV ONE
[2020-09-22] MEDS ORDERED: ceFAZolin 1 GM in Premix Bag 1 BAG IV ONE (10:30)
[2020-09-22] MEDS ORDERED: Dextrose 5%-Lactated Ringers 1,000 ML IV SCH (10:30)
[2020-09-22] MEDS ORDERED: Lidocaine 1% with EPINEPHrine 1:100,000 50 ML MDV ONE (10:47)
[2020-09-22] MEDS ORDERED: Bupivacaine 0.5% 50 ML MDV ONE (10:47)
[2020-09-22] MEDS ORDERED: Bacitracin Oint 1 GM U/D Packet ONE (11:43)
[2020-09-22 12:51] VITALS: PULSE 64
[2020-09-22 12:52] VITALS: BP 136/85
--- NOTE | 2020-10-04 11:59 | OR ---
DATE OF PROCEDURE: 09/22/2020 SURGEON: Eliecer Ludwig MD PREOPERATIVE DIAGNOSIS: Cystic lesion, left external ear. POSTOPERATIVE DIAGNOSIS: Cystic lesion, left external ear. OPERATIVE PROCEDURE: Excision of cystic lesion of left external ear with layered closure ([id number]). ANESTHESIA: Local plus IV sedation. INDICATION FOR PROCEDURE: This is an 85-year-old presenting with a painful lesion located on the superior aspect of the external ear just inside the outer helix. The plan is to proceed with excision of this. Potential risks including bleeding, infection, and recurrence of the problem were reviewed, and the patient wishes to proceed. DETAILS OF PROCEDURE: The patient was taken to the operating room and placed in a supine position. IV sedation was administered after which the area around the left ear was then prepped and draped, and the area of concern was anesthetized with 1% lidocaine mixed with Marcaine. An elliptical incision over the area was then made and carried down through the skin and subcutaneous tissue. Some creamy-type white material was present within the cystic cavity. This was evacuated, and the area was then curetted to remove any lining in the cystic lesion that might be present. The incision was then closed with some 6-0 Vicryl stitch deep and some 5-0 Prolene interrupted stitches and some bacitracin applied. The patient was taken to the recovery room in satisfactory condition. The lesion plus margin length was 6 mm and the incision length 11 mm. Eliecer Ludwig MD /[id number]
== END 2020-09-22 13:20 | disposition home or self-care (01) ==
LOC: JP.SDS 08:49
PROVIDERS: ATTEND Surgery
DX: L85.9 Epidermal thickening, unspecified (principal); H93.8X2 Other specified disorders of left ear; E11.9 Type 2 diabetes mellitus without complications
CPT/HCPCS: 11441; 12051; 88305; J0690; J2250; J2704; J3010; J7121; J3490

== ENCOUNTER 2021-12-11 10:19 | Emergency (ER) | payer MEDICARE, BC ==
[2021-12-11 10:59] VITALS: BP 155/74; PULSE 83
== END 2021-12-11 12:25 | disposition home or self-care (01) ==
LOC: JP.ED 10:19
DX: S93.402A Sprain of unspecified ligament of left ankle, initial encounter (principal); E78.00 Pure hypercholesterolemia, unspecified; I10 Essential (primary) hypertension; E11.9 Type 2 diabetes mellitus without complications; M10.9 Gout, unspecified; K21.9 Gastro-esophageal reflux disease without esophagitis; Z88.0 Allergy status to penicillin; Z88.2 Allergy status to sulfonamides; Z88.8 Allergy status to other drugs, medicaments and biological substances; Z79.899 Other long term (current) drug therapy; X50.1XXA Overexertion from prolonged static or awkward postures, initial encounter
CPT/HCPCS: 73610-26-RT; 73610-RT; 73630-26-RT; 73630-RT; 99282; 99283-25

== ENCOUNTER 2022-05-27 08:29 | Emergency (ER) | payer MEDICARE, BC ==
[2022-05-27 08:46] VITALS: BP 172/79; PULSE 73
== END 2022-05-27 09:56 | disposition home or self-care (01) ==
LOC: JP.ED 08:29
DX: R33.9 Retention of urine, unspecified (principal); I10 Essential (primary) hypertension; E11.9 Type 2 diabetes mellitus without complications; Z79.899 Other long term (current) drug therapy; Z88.8 Allergy status to other drugs, medicaments and biological substances; Z88.0 Allergy status to penicillin; Z88.2 Allergy status to sulfonamides; Z90.49 Acquired absence of other specified parts of digestive tract
CPT/HCPCS: 51702; 81001; 99284-25

== ENCOUNTER 2022-09-02 14:47 | Emergency (ER) | payer MEDICARE, BC ==
[2022-09-02 16:55] VITALS: BP 147/77; PULSE 71
== END 2022-09-02 18:08 | disposition home or self-care (01) ==
LOC: JP.ED 14:47
DX: R10.84 Generalized abdominal pain (principal); E78.00 Pure hypercholesterolemia, unspecified; I10 Essential (primary) hypertension; E11.9 Type 2 diabetes mellitus without complications; K21.9 Gastro-esophageal reflux disease without esophagitis; Z88.0 Allergy status to penicillin; Z88.2 Allergy status to sulfonamides; Z88.8 Allergy status to other drugs, medicaments and biological substances; Z79.899 Other long term (current) drug therapy
CPT/HCPCS: 99283

== ENCOUNTER 2022-11-08 13:06 | Emergency (ER) | payer MEDICARE, BC ==
[2022-11-08 15:39] LABS: ESTIMATED GFR 17 mL/min (>60)
[2022-11-08] MEDS ORDERED: Meclizine 25 MG Tab PO ONE (17:08)
[2022-11-08 17:52] VITALS: BP 138/67; PULSE 63
== END 2022-11-08 18:10 | disposition home or self-care (01) ==
LOC: JP.ED 13:06
DX: R42 Dizziness and giddiness (principal); E78.00 Pure hypercholesterolemia, unspecified; I10 Essential (primary) hypertension; E11.9 Type 2 diabetes mellitus without complications; Z88.8 Allergy status to other drugs, medicaments and biological substances; Z88.0 Allergy status to penicillin; Z88.2 Allergy status to sulfonamides; Z79.899 Other long term (current) drug therapy; Z90.49 Acquired absence of other specified parts of digestive tract
CPT/HCPCS: 36415; 70450; 80053; 81001; 83735; 84484; 85025; 93005; 99284; A9270

== ENCOUNTER 2023-07-10 15:16 | Emergency (ER) | payer MEDICARE, BC ==
[2023-07-10] MEDS ORDERED: Albuterol/Ipratropium 3.0-0.5 MG/3 ML Neb Soln NEB ONE (15:21)
[2023-07-10] MEDS ORDERED: Sodium Chloride 0.9% 10 ML Syringe FLUSH PRN (15:22)
[2023-07-10 15:33] LABS: BICARBONATE,ARTERIAL 22.5 mmol/L (22.0-26.0); CARBOXYHEMOGLOBIN 1.6 % (0.0-1.6); METHEMOGLOBIN 1.7 %; O2 SATURATION ARTERIAL 97.8 % (95.0-98.0); OXYHEMOGLOBIN 94.6 %; PO2 ARTERIAL 92.2 mmHg (75.0-100.0); TOTAL HEMOGLOBIN 13.7 g/dL (13.5-18.0)
[2023-07-10 15:35] LABS: BASOPHILS ABSOLUTE AUTO 0.03 K/uL (0.00-0.10); BASOPHILS PERCENT AUTO 0.4 % (0.1-1.3); EOSINOPHILS ABSOLUTE AUTO 0.06 K/uL (0.00-0.40); EOSINOPHILS PERCENT AUTO 0.7 % (0.0-5.4); HEMATOCRIT 40.3 % (38.4-49.7); HEMOGLOBIN 13.9 g/dL (12.9-16.9); IMMATURE GRAN PERCENT AUTO 1.2 % (0.0-0.7); LYMPHOCYTES PERCENT AUTO 10.9 % (11.4-47.7); MEAN CORPUSCULAR HEMOGLOBIN 31.5 pg (31.6-35.5); MEAN CORPUSCULAR HGB CONC 34.5 g/dL (31.6-35.5); MEAN CORPUSCULAR VOLUME 91.4 fL (81.4-99.0); MONOCYTES PERCENT AUTO 4.8 % (3.3-12.6); NEUTROPHILS ABSOLUTE AUTO 6.77 K/uL (1.0-7.6); PLATELET COUNT,PLT 154 K/uL (130-375); RED BLOOD CELL COUNT 4.41 M/uL (4.14-5.76); WHITE BLOOD CELL COUNT,WBC 8.3 K/uL (3.2-11.0)
[2023-07-10 15:36] LABS: PCO2 ARTERIAL 15.2 mmHg (35.0-42.0)
[2023-07-10 15:58] LABS: A/G RATIO 0.7 (1.2-2.2); ALANINE AMINOTRANSFERASE,ALT 49 U/L (12-78); ALBUMIN 2.8 g/dL (3.4-5.0); ALKALINE PHOSPHATASE 97 U/L (46-116); ASPARTATE AMNIOTRANSFERASE,AST 29 U/L (15-37); BILIRUBIN TOTAL 0.6 mg/dL (0.2-1.0); BLOOD UREA NITROGEN,BUN 65 mg/dL (7-18); C-REACTIVE PROTEIN 1.18 mg/dL (0.0-0.3); CALCIUM 9.8 mg/dL (8.5-10.1); CARBON DIOXIDE,CO2 25 mmol/L (21-32); CHLORIDE,CL 89 mmol/L (100-108); EST CRCL DRUG DOSING (CG) 5.68 mL/min; ESTIMATED GFR 7 mL/min (>60); GLUCOSE RANDOM 160 mg/dL (74-106); POTASSIUM,K 3.8 mmol/L (3.6-5.2); PROTEIN TOTAL,TP 6.6 g/dL (6.4-8.2); SODIUM,NA 130 mmol/L (140-148)
[2023-07-10 16:00] LABS: ANION GAP 19.8 mmol/L (5.0-14.0); CREATININE 7.2 mg/dL (0.8-1.3); TROPONIN I HIGH SENSITIVITY 161.7 pg/mL (<=60.3)
[2023-07-10 16:03] LABS: PHOSPHORUS 2.7 mg/dL (2.5-4.9)
[2023-07-10] MEDS ORDERED: Naloxone 0.4 MG/ML SDV IVPUSH PRN (16:09)
[2023-07-10] MEDS ORDERED: Morphine 2 MG/ML SYRINGE IVPUSH ONE ×2 (16:09→18:13)
[2023-07-10 16:25] VITALS: PULSE 102
[2023-07-10 16:35] VITALS: BP 113/74
[2023-07-10] MEDS ORDERED: Sodium Chloride 0.9% 1,000 ML IV ONE (17:58)
== END 2023-07-10 19:10 | disposition home or self-care (01) ==
LOC: JP.ED 15:16
DX: F41.0 Panic disorder [episodic paroxysmal anxiety] (principal); E87.3 Alkalosis; E11.9 Type 2 diabetes mellitus without complications; I12.0 Hypertensive chronic kidney disease with stage 5 chronic kidney disease or end stage renal disease; E11.22 Type 2 diabetes mellitus with diabetic chronic kidney disease; N18.6 End stage renal disease; E78.00 Pure hypercholesterolemia, unspecified; M10.9 Gout, unspecified; Z99.2 Dependence on renal dialysis; Z79.899 Other long term (current) drug therapy; Z88.8 Allergy status to other drugs, medicaments and biological substances; Z88.0 Allergy status to penicillin; Z88.2 Allergy status to sulfonamides; Z20.822 Contact with and (suspected) exposure to COVID-19
CPT/HCPCS: 36415; 36600; 71045; 80053; 82803; 83735; 83880; 84100; 84145; 84484; 85025; 86140; 93005; 96361; 96374; 96376; 99285; J2270; J3490; J7030; U0002